=== PATIENT | male | born 1965 | race Caucasian/White ===

== ENCOUNTER → 2016-07-31 | Outpatient (CLI) | payer BC ==
[~2016-07-31] VITALS: Ht 175.3 cm; Wt 81.2 kg
[~2016-07-31] MED LIST: ACHD5005 PO; CATHETER FLUSH 10 ML SYR IV PRN; CYCL10TA9 PO; HYDR-3816 PO; IBP800T PO; IBUP-1780 PO; NAPR500T PO; PRD20T PO; TRAM50TA2 PO
== END ==
LOC: CARD 11:20
PROVIDERS: ATTEND Internal Medicine Cardiovascular Disease
DX: I10 Essential (primary) hypertension (principal); E78.4 Other hyperlipidemia; R94.31 Abnormal electrocardiogram [ECG] [EKG]; Z72.0 Tobacco use

== ENCOUNTER → 2016-09-04 | Outpatient (CLI) | payer BC ==
[~2016-09-04] MED LIST changes: +REGADENOSON 0.4 MG/5 ML SYR (LEXISCAN) IV ONE
[2016-09-04 09:29] VITALS: BP 148/86
[2016-09-04 09:33] VITALS: BP 143/74
[2016-09-04 09:36] VITALS: BP 138/79
--- NOTE | 2016-09-05 09:52 | STRESS TEST ---
PROCEDURE PHYSICIAN: KRYSTINA JIMENEZ DATE OF PROCEDURE: 09/04/2016 RESTING AND POST REGADENOSON TECHNETIUM 99M TETROFOSMIN SPECT CT IMAGING: ORDERING PHYSICIAN: Dr. Jimenez. PRIMARY PHYSICIAN: Dr. Butcher. OTHER PHYSICIAN: Zabrina Warner APRN. Baseline images were carried out after injection of 10.24 mCi technetium 99m tetrofosmin. This was followed by 0.4 mg of regadenoson and 29.9 mCi of technetium 99m tetrofosmin for stress imaging. The electrocardiogram showed sinus rhythm at baseline and did not change significantly with the regadenoson infusion. Review of images at rest and following stress, does not indicate any significant perfusion defects consistent with ischemia or infarction. Gated images show normal global left ventricular systolic function with normal regional wall motion. Left ventricular ejection fraction is calculated to be 56%. Left ventricular end diastolic volume is 106 mL. TID is absent (0.94). The electrocardiogram remained unchanged during this study and the patient did not report any significant symptoms and tolerated the procedure well. CONCLUSIONS: 1. No evidence of any significant myocardial ischemia or infarction on this study. 2. Normal regional wall motion. 3. Normal global left ventricular systolic function with a calculated ejection fraction of 56%. Job ID: [id number] Dictated Date: 09/04/2016 16:04:19 Employment Evaluator/Case Manager Date: 09/05/2016 09:49:13 / [place]
== END ==
LOC: CARD 07:34
PROVIDERS: ATTEND Internal Medicine Cardiovascular Disease
DX: I10 Essential (primary) hypertension (principal); E78.4 Other hyperlipidemia; R94.31 Abnormal electrocardiogram [ECG] [EKG]; Z72.0 Tobacco use
CPT/HCPCS: 78452; 93017

== ENCOUNTER 2016-11-13 09:47 | Outpatient (CLI) | payer BC ==
[~2016-11-13] VITALS: Ht 175.3 cm; Wt 83.5 kg
[~2016-11-13 09:47] MED LIST changes: -CATHETER FLUSH 10 ML SYR IV PRN; -HYDR-3816 PO; -REGADENOSON 0.4 MG/5 ML SYR (LEXISCAN) IV ONE
[2016-11-13] MEDS ORDERED: HYDR-3816 PO (10:15)
[2016-11-13 10:48] LABS: BASOPHILS % (AUTO) 0 % (0-10); EOSINOPHILS # (AUTO) 0.2 10^3/uL (0.0-0.3); EOSINOPHILS % (AUTO) 4 % (0-10); LYMPHOCYTES % (AUTO) 20 % (12-44); MEAN CORPUSCULAR HEMOGLOBIN 29 PG (25-34); MEAN CORPUSCULAR HGB CONC 34 G/DL (32-36); MEAN CORPUSCULAR VOLUME 86 FL (80-99); MEAN PLATELET VOLUME 10.5 FL (7.4-10.4); MONOCYTES # (AUTO) 0.5 X 10^3 (0.0-1.0); MONOCYTES % (AUTO) 10 % (0-12); NEUTROPHILS # (AUTO) 3.2 X 10^3 (1.8-7.8); NEUTROPHILS % (AUTO) 66 % (42-75); PLATELET COUNT 162 10^3/uL (130-400); RED BLOOD COUNT 4.91 10^6/uL (4.35-5.85); WHITE BLOOD COUNT 4.8 10^3/uL (4.3-11.0)
[2016-11-13 10:49] LABS: BILIRUBIN,URINE NEGATIVE (NEGATIVE); KETONES,URINE NEGATIVE (NEGATIVE); LEUKOCYTE ESTERASE ,URINE 1+ (NEGATIVE); NITRITE,URINE NEGATIVE (NEGATIVE); PH,URINE 6 (5-9); PROTEIN,URINE NEGATIVE (NEGATIVE); UROBILINOGEN,URINE NORMAL (NORMAL)
[2016-11-13 10:59] LABS: PROTHROMBIN TIME PATIENT 12.6 SEC (12.2-14.7)
[2016-11-13 11:02] VITALS: BP 151/91
[2016-11-13 11:03] LABS: SQUAMOUS EPITHELIAL CELL,UR RARE /HPF; WBC,URINE RARE /HPF
--- NOTE | 2016-11-13 11:03 | Diagnostic Imaging Report ---
INDICATION: Preoperative evaluation prior to knee surgery. PA and lateral views of the chest are obtained. No previous studies available at this time for comparison. Overall heart size and pulmonary vascularity are within normal limits. There is an approximately 1 cm nodular density projected over the lower left chest seen best on the frontal view. Nodules at this location may be due to nipple shadow. Note is made of mild lower thoracic spondylosis. IMPRESSION: Nodular density project over the lower left chest could represent a nipple shadow, although confirmation with nipple markers would be useful to exclude pulmonary lesion. Otherwise, no acute abnormalities identified. Dictated by: Dictated on workstation # [id number]
[2016-11-13 11:12] LABS: ALANINE AMINOTRANSFERASE 21 U/L (0-55); ANION GAP 8 MMOL/L (5-14); ASPARTATE AMINO TRANSFERASE 15 U/L (5-34); BILIRUBIN,TOTAL 0.4 MG/DL (0.1-1.0); BLOOD UREA NITROGEN 17 MG/DL (7-18); BUN/CREATININE RATIO 20; CALCIUM 8.8 MG/DL (8.5-10.1); CARBON DIOXIDE 25 MMOL/L (21-32); CHLORIDE 106 MMOL/L (98-107); CREATININE SERUM 0.87 MG/DL (0.60-1.30); GFR ESTIMATED > 60; GLUCOSE 99 MG/DL (70-105); SODIUM 139 MMOL/L (135-145); TOTAL PROTEIN 6.4 G/DL (6.4-8.2)
[2016-11-13 11:43] LABS: ERYTHROCYTE SEDIMENTATION RATE 4 MM/HR (0-15)
== END 2016-11-13 10:40 | disposition home or self-care (01) ==
LOC: PREOP 09:47
PROVIDERS: ATTEND Orthopaedic Surgery
DX: Z01.818 Encounter for other preprocedural examination (principal); Z01.812 Encounter for preprocedural laboratory examination; M17.12 Unilateral primary osteoarthritis, left knee; R53.83 Other fatigue
CPT/HCPCS: 36415; 71020; 80053; 81000; 85025; 85610; 85652; 86850; 86900; 86901; 87081

== ENCOUNTER 2016-11-21 06:00 | Inpatient (IN) | payer BC ==
--- NOTE | 2016-11-13 12:00 | HISTORY AND PHYSICAL ---
DATE OF SERVICE: 11/21/2016 REASON FOR INPATIENT ADMISSION: Left total knee arthroplasty. HISTORY OF PRESENT ILLNESS: The patient is a 51-year-old gentleman with longstanding left knee pain. He has undergone treatment with arthroscopies, injections, anti-inflammatories and rest, but has had progressive symptoms. Radiographs reveal complete loss of medial and patellofemoral joint spaces and arthroscopy revealed grade IV chondral loss throughout the medial and patellofemoral compartments. Due to failure to improve with conservative measures and functional impairment, the patient has elected to proceed with surgical intervention. REVIEW OF SYSTEMS: No chest pain, no shortness of breath, no dysuria. PAST MEDICAL HISTORY: Hypertension. PAST SURGICAL HISTORY: Knee arthroscopy and appendectomy. FAMILY HISTORY: Heart disease. PRIMARY CARE PROVIDER: [facility]. MEDICATIONS: Tramadol. ALLERGIES: No known drug allergies. SOCIAL HISTORY: The patient is an everyday smoker. Denies alcohol use. PHYSICAL EXAMINATION: GENERAL: The patient is well-developed, well-nourished, in no acute distress. HEENT: Normocephalic, atraumatic. Pupils are equal, round and reactive to light. Oropharynx is clear. NECK: Supple. No lymphadenopathy. LUNGS: Clear to auscultation bilaterally. HEART: Regular rate and rhythm. ABDOMEN: Soft, nontender, nondistended. EXTREMITIES: Left knee demonstrates varus alignment. He has a slight effusion. There is no erythema or warmth. Range of motion 0/2/130. There is no varus to valgus laxity. Negative anterior and posterior drawer. IMPRESSION: Severe left knee osteoarthritis, unresponsive to conservative measures. PLAN: Left total knee arthroplasty. The risks, benefits, options, ramifications and recovery have been discussed at length with the patient. He understands and wishes to proceed. Job ID: [id number] DocumentID: [id number] Dictated Date: 11/13/2016 11:01:32 Vehicle Calibration Engineer Date: 11/13/2016 12:00:16 Dictated By: DEREK SIFUENTES MD
[~2016-11-21] VITALS: Ht 175.3 cm; Wt 83.5 kg
[~2016-11-21 06:00] MED LIST changes: +HYDR-3816 PO
[2016-11-21] MEDS ORDERED: FAMOTIDINE 20MG/2ML IV (PEPCID) IV ONE (06:15)
[2016-11-21] MEDS ORDERED: fentaNYL INJECTION 100 MCG/2 ML AMP IV ONE (06:15)
[2016-11-21] MEDS ORDERED: NS (IVPB) 50 ML ONE (06:31)
[2016-11-21] MEDS ORDERED: CEFUROXIME 1.5 GM (ZINACEF) VIAL ONE (06:31)
[2016-11-21] MEDS: LACTATED RINGERS 1,000 ML IV PRN ×2 (06:41→08:05)
[2016-11-21] MEDS ORDERED: fentaNYL INJECTION 250 MCG/5 ML AMP ONE (06:43)
[2016-11-21] MEDS ORDERED: DEXAMETHASONE PF 10 MG/ML (DECADRON) VIAL ONE (06:43)
[2016-11-21] MEDS ORDERED: LACTATED RINGERS 1,000 ML IV ONE ×2 (06:43→08:46)
[2016-11-21] MEDS ORDERED: ONDANSETRON 4 MG/2 ML (SDV) Z0FRAN ONE (06:43)
[2016-11-21] MEDS ORDERED: LIDOCAINE PF 2% 10 ML (XYLOCAINE) AMP ONE (06:43)
[2016-11-21] MEDS ORDERED: proPOfol 200 MG/20 ML (DIPRIVAN) VIAL IV ONE (06:43)
[2016-11-21] MEDS ORDERED: MIDAZOLAM 2 MG/2 ML (VERSED) VIAL ONE (06:44)
[2016-11-21 06:49] VITALS: BP 142/98
[2016-11-21] MEDS ORDERED: CEFUROXIME 1.5 GM/NS 50 ML IVPB IV ONE ×2 (07:00)
--- NOTE | 2016-11-21 07:17 | Progress Note-Pre Operative ---
Pre-Operative Progress Note H&P Reviewed The H&P was reviewed, patient examined and no changes noted. Date H&P Reviewed: November 21, 2016 Time H&P Reviewed: 07:11 Pre-Operative Diagnosis: left knee primary osteoarthritis DEREK SIFUENTES MD November 21, 2016 07:17
--- NOTE | 2016-11-21 07:18 | Progress Note-Post Operative ---
Post-Operative Progess Note Surgeon (s)/Septic Technician (s) Surgeon DEREK SIFUENTES MD Septic Technician: Pedro Garcia Pre-Operative Diagnosis left knee primary osteoarthritis Post-Operative Diagnosis left knee primary osteoarthritis Procedure & Operative Findings Date of Procedure 11/21/16 Procedure Preformed/Findings left total knee arthroplasty Anesthesia Type GETA Estimated Blood Loss Estimated blood loss (mL): minimal Specimens/Packing Specimens Removed none Packing: none DEREK SIFUENTES MD November 21, 2016 07:18
[2016-11-21] MEDS ORDERED: ACETAMINOPHEN 325 MG TABLET/CAPLET (TYLENOL) PO PRN (07:30)
[2016-11-21] MEDS ORDERED: diphenhydrAMINE 50 MG/ML INJ (BENADRYL) IVP PRN (07:30)
[2016-11-21] MEDS ORDERED: INTRA-ARTICULAR INJ ONE ×5 (07:30)
[2016-11-21] MEDS ORDERED: ONDANSETRON 4 MG/2 ML (SDV) Z0FRAN IVP PRN ×2 (07:30→09:00)
[2016-11-21] MEDS ORDERED: morphine INJ 10 MG/ML 1ML (SYR OR VIAL) ONE (08:35)
[2016-11-21] MEDS ORDERED: ROCURONIUM 50 MG/5 ML (ZEMURON) VIAL IV ONE (08:46)
[2016-11-21] MEDS ORDERED: SEVOFLURANE (ULTANE) 15 ML INHAL SOLN ONE (08:47)
[2016-11-21] MEDS ORDERED: morphine INJ 10 MG/ML 1ML (SYR OR VIAL) IVP PRN (09:00)
[2016-11-21] MEDS ORDERED: MEPERIDINE (DEMEROL) INJ 50 MG/ML ONE (09:09)
[2016-11-21] MEDS: MEPERIDINE (DEMEROL) INJ 50 MG/ML IVP PRN ×2 (09:10→09:23)
[2016-11-21] MEDS ORDERED: HYDROmorphone (DILAUDID) 2 MG/ML VIAL ONE (09:22)
[2016-11-21] MEDS: HYDROmorphone (DILAUDID) 2 MG/ML VIAL IVP PRN ×4 (09:25→09:55)
--- NOTE | 2016-11-21 09:41 | Progress Note-Standard ---
Standard Progress Note Progress Notes/Assess & Plan Progress/Assessment & Plan Post op check denies paresthesias radiographs--HW well positioned. No fxs LLE--2 plus DP pulse with brisk cap refill. Intact df and PF of toes and ankle s/p LTKA mobilize as able DEREK SIFUENTES MD November 21, 2016 09:41
[2016-11-21] MEDS ORDERED: OXYC-197 PO (09:44)
--- NOTE | 2016-11-21 09:46 | Diagnostic Imaging Report ---
INDICATION: Status post left knee replacement. COMPARISON: None. FINDINGS: Two views of the left knee were obtained. Expected postoperative changes are seen from left knee total arthroplasty. Femoral and tibial components appear well-seated. There is no evidence of periprosthetic fracture. There is a small amount of subcutaneous emphysema in the soft tissues over the knee. Skin scout are seen centrally over the anterior aspect of the knee. No unexpected radiopaque foreign bodies are identified. IMPRESSION: Expected postsurgical changes from left knee total arthroplasty, as described above. No unexpected radiopaque foreign bodies. Dictated by: Dictated on workstation # [id number]
[2016-11-21 11:00] VITALS: BP 135/85
[2016-11-21] MEDS: oxyCODONE/APAP 5/325MG (PERCOCET 5) TABLET PO PRN ×3 (11:21→20:41)
[2016-11-21] MEDS: SENNA W/DOCUSATE (SENOKOT S) TABLET PO SCH ×2 (11:21→20:40)
[2016-11-21] MEDS: NS IV 1000 ML 1,000 ML IV SCH ×2 (11:22→23:31)
[2016-11-21] MEDS: morphine PCA 30 MG/30 ML VIAL IV PRN (11:43)
[2016-11-21 12:00] VITALS: BP 154/89
--- NOTE | 2016-11-21 15:13 | Physical Therapy Evaluation ---
PT Evaluation-General Medical Diagnosis Admission Date November 21, 2016 at 06:00 Medical Diagnosis: left TKA Onset Date: November 21, 2016 Therapy Diagnosis Therapy Diagnosis: impaired mobility, endurance, ROM, strength Height/Weight Height (Feet): 5 Height (Inches): 9.00 Weight (Pounds): 184 Weight (Ounces): 0.0 Precautions Precautions/Isolations: Standard Precautions Weight Bear Status Weight Bearing Restriction: Weight Bearing/Tolerated Location Restriction: L LE Referral Physician: Pedro Garcia Reason for Referral: Evaluation/Treatment Medical History Pertinent Medical History: HTN Additional Medical History surg (knee arthroplasty, appendectomy) Current History elective surgery Reviewed History: Yes Social History Home: Single Level Current Living Status: Spouse Entry Into Home: Stairs Without Railing PT Steps Into Home: 1 Prior/Core FIM Prior Level of Function Functional [place] Measure 0=Not Assessed/NA 4=Minimal Assistance 1=Total Assistance 5=Supervision or Setup 2=Maximal Assistance 6=Modified [place] 3=Moderate Assistance 7=Complete [place] Bed Mobility: 7 Transfers (B,C,W/C) (FIM): 7 Gait: 7 patient states he had a significant limp PT Evaluation-Current Subjective Patient in bed pre tx, agrees to PT, nerve block is still working and he cannot dorsiflex but has some sensation, has pain of 7/10 Pt/Family Goals "to get back to work as soon as he can" Objective Patient Orientation: Normal For Age Attachments: IV ROM/Strength ROM Lower Extremities left knee extension +10 degrees, flexion 75 degrees Strenght Lower Extremities NT due to recent surgery Integumentary/Posture Bowel Incontinence: No Bladder Incontinence: No Sensory Vision: Functional Hearing: Functional Sensation Right Lower Extremit: Intact Sensation Left Lower Extremity: Impaired Sensation Lower Extremities Patient has intact light touch sensation in his left leg but it is dull. Transfers Functional [place] Measure 0=Not Assessed/NA 4=Minimal Assistance 1=Total Assistance 5=Supervision or Setup 2=Maximal Assistance 6=Modified [place] 3=Moderate Assistance 7=Complete [place] Transfers (B, C, W/C) (FIM): 4 Scootin Rollin Supine to/from Sit: 5 Sit to/from Stand: 4 Patient is somewhat impulsive and needs cues for safety and positioning. Gait Mode of Locomotion: Walk Anticipated Mode of Locomotion: Walk Gait (FIM): 2 Distance: 100' Gait Level of Assist: 4 Gait Persons Needed: 1 Gait Assistive Device: FWW Comments/Gait Description Slow, antalgic, foot drop on left side due to still working nerve block, flexed left knee during ambulation Balance Sitting Static: Normal Sitting Dynamic: Normal Standing Static: Good Standing Dynamic: Good Treatment Left side total knee protocol x10 (AP, QS, HS, SAQ, SLR), applied CPM to left knee at 56/-2, has on SCD's. Patient left in bed with nurse call, phone, tray, all needs met. Assessment/Needs Patient has impaired mobility, strength, endurance, ROM post left TKA. Rehab Potential: Good PT Home Specialist Goals Home Specialist Goals PT Custodial Goals Time Frame: November 28, 2016 Transfers (B,C,W/C) (FIM): 5 Gait (FIM): 5 Distance: 150' Gait Level of Assist: 5 Gait Assistive Device: FWW Stairs (FIM): 1 # of Steps: 1 Stairs Level Of Assist: 4 (cga) PT Plan Problem List Problem List: Activity Tolerance, Functional Strength, Safety, Balance, Gait, Transfer, Bed Mobility, ROM Treatment/Plan Treatment Plan: Continue Plan of Care Treatment Plan: Bed Mobility, Education, Functional Activity Solo, Functional Strength, Gait, Safety, Therapeutic Exercise, Transfers Treatment Duration: November 28, 2016 # of days/week 5-6 Visits Per Week: 10-11 Minutes/Day (M-F): 15-30 Minutes/Day (Sat/[place]): 15-30 Pt/Family Agrees w/Plan: Yes Safety Risks/Education Patient Education: Gait Training, Transfer Techniques, Correct Positioning, Safety Issues Teaching Recipient: Patient Teaching Methods: Demonstration, Discussion Response to Teaching: Reinforcement Needed Discharge Recommendations Plan Patient will perform bed mobility and transfer training, balance and endurance training, functional strengthening, stair training, gait training, and education , to improve functional mobility and independence at home. Therapy D/C Recommendations: Home w/ Family Support Time/GCodes Time In: 1435 Time Out: 1505 Total Billed Treatment Time: 30 Total Billed Treatment 1 visit ARIE 15' GT 15' JOSE ELIAS MCGEE PT November 21, 2016 15:13
[2016-11-21] MEDS: CEFUROXIME INJECTION 750 MG in NS (IVPB) 50 ML IV SCH ×2 (15:52→23:31)
[2016-11-21 16:00] VITALS: BP 133/78
[2016-11-21 20:00] VITALS: BP 126/60
[2016-11-22] VITALS: BP 111/61
--- NOTE | 2016-11-22 01:00 | OPERATIVE REPORT ---
DATE OF SERVICE: 11/21/2016 PREOPERATIVE DIAGNOSIS: Left knee primary osteoarthritis. POSTOPERATIVE DIAGNOSIS: Left knee primary osteoarthritis. PROCEDURE PERFORMED: Left total knee arthroplasty. SURGEON: Dr. Mathew Sifuentes. VICE PRESIDENT OF RECRUITING: KATE Koch, who assisted throughout the procedure and closed the incision. ANESTHESIA: General endotracheal by Pedro Barth CRNA. TOURNIQUET TIME: Approximately 63 minutes at 300 mmHg. ESTIMATED BLOOD LOSS: Minimal. DRAINS: None. COMPLICATIONS: None. MATERIALS: MicroPort, cemented size 5 femur, cemented size 6 tibia with a 10-mm insert and cemented size 35 patellar button. POSTOPERATIVE PLANS: The patient transported to the recovery room, awake and in stable condition. STATEMENT OF MEDICAL NECESSITY: The patient is a 51-year-old gentleman with longstanding left knee osteoarthritis. He has undergone treatment with multiple injections as well as arthroscopy, but he has had progressive loss of function and increasing pain. Radiographs show complete loss of his medial and patellofemoral joint spaces. Due to functional impairment and failure to improve with conservative measures, the patient elected to proceed with surgical intervention. DESCRIPTION OF PROCEDURE: After risks and benefits of the procedure were discussed and questions were answered and informed consent was signed and placed on the chart, the operative site was confirmed in the preoperative holding area and initialed by the surgeon. The patient was then transported to the operating room and after adequate levels of general endotracheal anesthetic were obtained, a time-out was called confirming the operative site. The left lower extremity was then prepped and draped in the usual sterile fashion with the leg elevated and knee flexed. Tourniquet was inflated 300 mmHg. A standard anterior portal was utilized. Hemostasis was obtained with cautery. A medial parapatellar arthrotomy was performed leaving 1 cm cuff on the patella for later reattachment. A portion of the fat pad was resected. The ACL was resected. An intramedullary guide was passed into the femur and a distal cutting block was placed. A distal cut was made and the femur sized to size 5. A cutting block was placed parallel to the epicondylar access and cuts were made from posterior to anterior. A subperiosteal release was then carefully performed on the posterior distal femur being careful to stay on the bony surface. The intramedullary guide was then passed into the tibia. A cutting block was placed. A drop deniz transected the intramedullary access and a cut was made. The base plate was placed and again the drop deniz transected the intermalleolar access, and this was pinned into position and then prepared with a drill and keel punch. A femoral trial was placed and a trochlear cut was made. A 10-mm insert was placed and the patella was then prepared using the free-end technique by resecting 10 mm off the undersurface. A peg guide was placed and peg holes were drilled. A 35-mm trial was placed. The knee was taken through range of motion. Full extension was easily obtained, 120 degrees of flexion with gravity was easily obtained. The patella tracked well. There was no anterior/posterior or medial/lateral laxity in flexion or extension. The trials were removed. The joint was irrigated with pulse lavage as were the bone ends. The para-articular block was placed in posterior capsule, medial and lateral retinacular, extensor mechanism, subcutaneous tissues. The tibia was irrigated and dried and tibial base plate was cemented into position. Excessive cement was removed. The superior surface was irrigated and dried and the polyethylene insert was placed. The distal femur was irrigated and dried. The femoral prosthesis was cemented into position. Excessive cement was removed. The knee was brought into full extension until the cement had cured. The undersurface of the patella was irrigated and dried, and the patellar button was cemented into position, and excessive cement was removed. Once the cement had cured, the knee was taken through range of motion. Full extension was easily obtained, 120 degrees of flexion with gravity was easily obtained. There was no anterior/posterior or medial/lateral laxity in flexion or extension and the patella tracked well. The joint was irrigated further post lavage. The arthrotomy was closed with #2 Tevde[place] in [id number] interrupted fashion. There was no [facility] noted at the repair site. Subcutaneous tissues were irrigated using a total 6 L throughout the procedure. An 0 Vicryl was used for deep subcutaneous tissue. A 2-0 Vicryl was used to reapproximate the subcutaneous tissue. [place] were used on the skin. A soft dressing was applied. The tourniquet was deflated, and the patient was transported to the recovery room awake and in stable condition. Job ID: [id number] DocumentID: [id number] Dictated Date: 11/21/2016 09:05:34 Event Executive Date: 11/22/2016 00:37:34 Dictated By: MATHEW SIFUENTES MD
[2016-11-22] MEDS: oxyCODONE/APAP 5/325MG (PERCOCET 5) TABLET PO PRN ×8 (02:02→20:00)
[2016-11-22] MEDS: morphine PCA 30 MG/30 ML VIAL IV PRN ×2 (03:02→22:00)
[2016-11-22 04:00] VITALS: BP 120/69
[2016-11-22] MEDS: MULTIVIT W/MINERALS TAB (THERAGRAN M) PO SCH (06:07)
--- NOTE | 2016-11-22 07:40 | Progress Note-Standard ---
Standard Progress Note Progress Notes/Assess & Plan Progress/Assessment & Plan Post op check denies paresthesias radiographs--HW well positioned. No fxs LLE--2 plus DP pulse with brisk cap refill. Intact df and PF of toes and ankle s/p LTKA mobilize as able Final Diagnosis No complaints Vital Signs Date Time Temp Pulse Resp B/P (MAP) Pulse Ox O2 Delivery O2 Flow Rate FiO2 11/22/16 06:00 15 11/22/16 04:45 98.6 11/22/16 04:00 100.2 77 15 120/69 96 11/22/16 03:02 12 11/22/16 02:33 97 11/22/16 00:00 98.4 86 12 111/61 96 11/21/16 21:48 96 11/21/16 20:00 98.7 75 18 126/60 100 11/21/16 18:27 97 11/21/16 16:22 97.3 11/21/16 16:00 97.3 77 18 133/78 96 11/21/16 15:52 97.3 11/21/16 15:29 97 11/21/16 12:00 97.3 78 16 154/89 98 11/21/16 11:51 98.8 11/21/16 11:00 98.8 74 20 135/85 95 11/21/16 09:55 97.5 11/21/16 09:45 97.5 11/21/16 09:40 97.5 11/21/16 09:40 97.5 11/21/16 09:35 97.5 11/21/16 09:25 97.5 11/21/16 09:23 97.5 11/21/16 09:10 97.5 11/21/16 08:30 98.5 I & O 11/22/16 07:00 Intake Total 3920 ml Output Total 2020 ml Balance 1900 ml Laboratory Tests Test 11/22/16 04:30 Range/Units Hemoglobin 10.9 L 13.3-17.7 G/DL Hematocrit 32 L 40-54 % LLE--no calf tenderness. Neg Tristian's. NVI distally. Dressing intact s/p LTKA doing well PT/OT DEREK SIFUENTES MD November 22, 2016 07:40
[2016-11-22 08:00] VITALS: BP 132/69
--- NOTE | 2016-11-22 09:08 | Occupational Therapy Eval ---
OT Evaluation-General/PLF Medical Diagnosis Admission Date November 21, 2016 at 06:00 Medical Diagnosis: left TKA Onset Date: November 21, 2016 Therapy Diagnosis Therapy Diagnosis: Weakness, Decreased ADL skills Height/Weight Height (Feet): 5 Height (Inches): 9.00 Weight (Pounds): 184 Weight (Ounces): 0.0 Precautions Precautions/Isolations: Standard Precautions Safety Interventions: None Weight Bear Status Weight Bearing Restriction: Weight Bearing/Tolerated Location Restriction: L LE Referral Physician: Pedro Garcia Referral Reason: Activity Tolerance, Self Care, Evaluation/Treatment, Strengthening/ROM Medical History Pertinent Medical History: HTN Additional Medical History knee arthroscopy and appendectomy Current History This is an elective knee surgery. Reviewed History: Yes Social History Home: Single Level Current Living Status: Spouse Entry Into Home: Stairs Without Railing Steps Into Home: 1 ADL-Prior Level of Function ADL PLOF Comments Pt. was independent with daily tasks. Drives and works. DME/Equipment Comments Pt. thinks spouse might have a walker from previous surgeries. He will check. Does not think he needs any other equipment, such as stool riser and shower chair. Occupation: Works at [employer] Self: Yes OT Current Status Subjective Pt. reports 8/10 pain in left knee. Pt. on pain medication, CO2 monitor, and morphine drip. Appearance Pt. is asleep but wakes up. Agreeable to work with OT. Mental Status/Objective Patient Orientation: Person, Place, Time, Situation Attachments: IV, Oxygen, Polar Pack Current Upper Extremity ROM WFL Upper Extremity Coordination intact Upper Extremity Sensation intact Upper Extremity Strength intact ADL-Treatment Functional [place] Measure 0=Not Assessed/NA 4=Minimal Assistance 1=Total Assistance 5=Supervision or Setup 2=Maximal Assistance 6=Modified [place] 3=Moderate Assistance 7=Complete IndependenceIRFPAI Quality Coding Scale 6 Independent with activity with or without an assistive device 5 Patient requires set up or clean up by helper. Patient completes activity by themselves 4 Supervision or touching assist (CGA). [place] provide cues , steadying assist 3 The helper provides less than half the effort to complete the activity 2 The helper provides more than half the effort to complete the activity 1 Dependent. The helper does all the effort to complete an activity 7 Patient refused to complete or attempt activity 9 The patient did not perform the activity before the current illness or injury 88 Not attempted due to Medical conditions or safety concerns Eating (FIM): 7 Bathing (FIM): 5 (Pt. spongebathes somewhat on side of bed. However, has difficulty only due to the monitors and tubing. Pt. states that he will have his spouse help him later if needed.) Lower Body Dressing (FIM): 5 (Pt. is able to doff/don socks. Has boxer briefs on and states that he put them on himself.) Toileting (FIM): 6 (Pt. states that he was able to have a bowel movement already, and was able to clean himself up.) Transfers (B, C, W/C) (FIM): 5 (Pt. is able to transfer supine-sit, and then sit-stand with SBA. Able to get feet back into bed as well.) Multiple tubes and chords makes ADLs more difficult, but overall, pt. is able to complete them. Pt. is educated on adaptive equipment, but states that he is not interested in using it, as his spouse can assist him if needed at home. Pt. is educated about positioning in bed, and pain management. Verbalizes understanding. All needs met this date. Education OT Patient Education: Correct positioning, Modified ADL techniques, Progress toward Goal/Update tx plan, Purpose of tx/functional activities, Reviewed precautions, Rehab process, Transfer techniques, Use of adapted equipment Teaching Recipient: Patient Teaching Methods: Demonstration, Discussion Response to Teaching: Verbalize Understanding, Return Demonstration OT Short Term Goals Short Term Goals 1=Demonstrate adherence to instructed precautions during ADL tasks. 2=Patient will verbalize/demonstrate understanding of assistive devices/ modifications for ADL. 3=Patient will improve strength/tolerance for activity to enable patient to perform ADL's. OT Usp Goals Traveling Freight Agent Goals Time Frame: November 22, 2016 Bathing(FIM): 5 Lower Body Dressing(FIM): 5 Toileting(FIM): 6 Transfers (B,C,W/C) (FIM): 5 Additional Goals: 1-Demonstrate ADL Tasks, 2-Verbalize Understanding 1=Demonstrate adherence to instructed precautions during ADL tasks. 2=Patient will verbalize/demonstrate understanding of assistive devices/ modifications for ADL. 3=Patient will improve strength/tolerance for activity to enable patient to perform ADL's. All goals met this date. OT Education/Plan Problem List/Assessment Assessment: No Skilled OT Needs ID'd Discharge Recommendations Plan/Recommendations: Discharge/Goals Met Therapy D/C Recommendations: Home w/ Family Support Patient/Family Goals To discharge tomorrow. Treatment Plan/Plan of Care Treatment,Training & Education: Yes Patient would benefit from OT for education, treatment and training to promote independence in ADL's, mobility, safety and/or upper extremity function for ADL' s. Plan of Care: ADL Retraining Treatment Duration: November 22, 2016 Visits Per Week: 1 visit Agreement: Yes Rehab Potential: Good Time/GCodes Start Time: 08:30 Stop Time: 09:00 Total Time Billed (hr/min): 30 Billed Treatment Time 1, EVL x 15minutes, ADL x 15minutes MALCOLM ISAAC OT November 22, 2016 09:08
[2016-11-22] MEDS: SENNA W/DOCUSATE (SENOKOT S) TABLET PO SCH ×2 (09:14→20:28)
[2016-11-22] MEDS: ENOXAPARIN 30 MG/0.3 ML (LOVENOX) SYR SC SCH ×2 (09:15→20:28)
[2016-11-22] MEDS: ASPIRIN E.C. 81 MG (ECOTRIN) TAB PO SCH (09:15)
--- NOTE | 2016-11-22 09:26 | Physical Therapy Daily Note ---
PT Daily Note-Current Subjective Patient complete with OT and agrees to PT. Pain Numeric Pain Scale: 5-Moderate Pain Location: Left Location Body Site: Knee Pain Description: Acute Mental Status Patient Orientation: Normal For Age Attachments: Polar Pack, IV Transfers Functional [place] Measure 0=Not Assessed/NA 4=Minimal Assistance 1=Total Assistance 5=Supervision or Setup 2=Maximal Assistance 6=Modified [place] 3=Moderate Assistance 7=Complete IndependenceIRFPAI Quality Coding Scale 6 Independent with activity with or without an assistive device 5 Patient requires set up or clean up by helper. Patient completes activity by themselves 4 Supervision or touching assist (CGA). [place] provide cues , steadying assist 3 The helper provides less than half the effort to complete the activity 2 The helper provides more than half the effort to complete the activity 1 Dependent. The helper does all the effort to complete an activity 7 Patient refused to complete or attempt activity 9 The patient did not perform the activity before the current illness or injury 88 Not attempted due to Medical conditions or safety concerns Transfers (B, C, W/C) (FIM): 6 Scootin Rollin Supine to/from Sit: 6 Sit to/from Stand: 6 Weight Bearing Weight Bearing Restriction: Weight Bearing/Tolerated Location Restriction: L LE Gait Training Gait (FIM): 6 Distance (FIM): 3=150 ft Distance: 200' Gait Level of Assist: 6 Gait Assistive Device: FWW antalgic, flexed left knee posture Exercises Supine Ex: Ankle pumps, Quad Set, Heel Slides Supine Reps: 10 Seated Therapy Exercises: Long arc quads Seated Reps: 15 Treatments CPM with polar pack, 0-70 degrees Assessment Patient tolerated treatment well and is highly motivated with progress. PT to increase activity as tolerated by patient. PT Halfway Goals Halfway Goals PT Halfway Goals Time Frame: November 28, 2016 Transfers (B,C,W/C) (FIM): 5 Gait (FIM): 5 Distance: 150' Gait Level of Assist: 5 Gait Assistive Device: FWW Stairs (FIM): 1 # of Steps: 1 Stairs Level Of Assist: 4 (cga) PT Plan Treatment/Plan Treatment Plan: Continue Plan of Care Treatment Plan: Bed Mobility, Education, Functional Activity Solo, Functional Strength, Gait, Safety, Therapeutic Exercise, Transfers Treatment Duration: November 28, 2016 Visits Per Week: 10-11 Minutes/Day (M-F): 15-30 Minutes/Day (Sat/Gamez): 15-30 Time/GCodes Time In: 855 Time Out: 918 Total Billed Treatment Time: 23 Total Billed Treatment 1 visit GT 15 min EX 8 min WING AYOUB PT November 22, 2016 09:26
--- NOTE | 2016-11-22 10:31 | Anesthesia-General Post-Op ---
General Patient Condition Mental Status/LOC: Same as Preop Cardiovascular: Satisfactory Nausea/Vomiting: Absent Respiratory: Satisfactory Pain: Controlled Complications: Absent Post Op Complications Complications None Follow Up Care/Instructions Patient Instructions None needed. Anesthesia/Patient Condition Patient Condition Patient is doing well, no complaints, stable vital signs, no apparent adverse anesthesia problems. No complications reported per nursing. D/C home per [facility] Criteria: No XAVIER BRODERICK CRNA November 22, 2016 10:31
[2016-11-22] MEDS: NS IV 1000 ML 1,000 ML IV SCH ×2 (10:53→17:02)
--- NOTE | 2016-11-22 11:55 | Progress Note-Hospitalist ---
Progress Note Progress Notes/Assess & Plan Date Seen 11/22/16 Diagonsis/Assessment & Plan Attempted to see patient for consultation but he was off the floor downstairs smoking so will follow up later. RITA PEARSON DO November 22, 2016 11:55
[2016-11-22 12:00] VITALS: BP 152/73
--- NOTE | 2016-11-22 13:49 | Physical Therapy Daily Note ---
PT Daily Note-Current Subjective Patient has increase c/o left knee pain 10/10 with RN issuing medication. Pain Numeric Pain Scale: 10-Worst Possible Pain Location: Left Location Body Site: Knee Pain Description: Acute Mental Status Patient Orientation: Normal For Age Attachments: IV Transfers Functional [place] Measure 0=Not Assessed/NA 4=Minimal Assistance 1=Total Assistance 5=Supervision or Setup 2=Maximal Assistance 6=Modified [place] 3=Moderate Assistance 7=Complete IndependenceIRFPAI Quality Coding Scale 6 Independent with activity with or without an assistive device 5 Patient requires set up or clean up by helper. Patient completes activity by themselves 4 Supervision or touching assist (CGA). [place] provide cues , steadying assist 3 The helper provides less than half the effort to complete the activity 2 The helper provides more than half the effort to complete the activity 1 Dependent. The helper does all the effort to complete an activity 7 Patient refused to complete or attempt activity 9 The patient did not perform the activity before the current illness or injury 88 Not attempted due to Medical conditions or safety concerns Transfers (B, C, W/C) (FIM): 6 Scootin Rollin Supine to/from Sit: 6 Sit to/from Stand: 6 Weight Bearing Weight Bearing Restriction: Weight Bearing/Tolerated Location Restriction: L LE Gait Training Gait (FIM): 6 Distance (FIM): 3=150 ft Distance: 350' Gait Level of Assist: 6 Gait Assistive Device: FWW continues to have difficulty extended left knee with ambulation; patient prefers to perform TTWB left LE for comfort Exercises Supine Ex: Ankle pumps, Quad Set, Heel Slides, Straight leg raise Supine Reps: 15 Seated Therapy Exercises: Ankle pumps, Long arc quads Seated Reps: 15 Standing: Heel/toe raises Standing Reps: 15 Treatments polar pack in place with towel rolls placed on lateral aspect of left LE to prevent ER. Assessment Patient is progressing with treatment plan. Plan to increase activity as tolerated. PT Bias Machine Operator Goals Bias Machine Operator Goals PT Mcc Goals Time Frame: November 28, 2016 Transfers (B,C,W/C) (FIM): 5 Gait (FIM): 5 Distance: 150' Gait Level of Assist: 5 Gait Assistive Device: FWW Stairs (FIM): 1 # of Steps: 1 Stairs Level Of Assist: 4 (cga) PT Plan Treatment/Plan Treatment Plan: Continue Plan of Care Treatment Plan: Bed Mobility, Education, Functional Activity Solo, Functional Strength, Gait, Safety, Therapeutic Exercise, Transfers Treatment Duration: November 28, 2016 Visits Per Week: 10-11 Minutes/Day (M-F): 15-30 Minutes/Day (Sat/Gamez): 15-30 Time/GCodes Time In: 1305 Time Out: 1330 Total Billed Treatment Time: 25 Total Billed Treatment 1 visit GT 10 min EX 15 min WING AYOUB PT November 22, 2016 13:49
[2016-11-22 16:10] VITALS: BP 164/84
[2016-11-22] MEDS: morphine INJ 4 MG/ML 1 ML (VIAL/SYRINGE) IVP PRN ×2 (16:57→20:44)
[2016-11-22 19:33] VITALS: BP 167/87
[2016-11-22] MEDS ORDERED: morphine INJ 4 MG/ML 1 ML (VIAL/SYRINGE) IVP PRN (21:00)
[2016-11-22] MEDS ORDERED: ALPRAZolam 1 MG (XANAX) TAB PO SCH (21:00)
[2016-11-23] MEDS: oxyCODONE/APAP 5/325MG (PERCOCET 5) TABLET PO PRN ×8 (00:24→23:12)
[2016-11-23] MEDS: morphine INJ 4 MG/ML 1 ML (VIAL/SYRINGE) IVP PRN (01:11)
[2016-11-23 04:30] VITALS: BP 156/86
[2016-11-23] MEDS: NS IV 1000 ML 1,000 ML IV SCH (05:38)
[2016-11-23] MEDS: MULTIVIT W/MINERALS TAB (THERAGRAN M) PO SCH (05:38)
--- NOTE | 2016-11-23 06:54 | Progress Note-Standard ---
Standard Progress Note Progress Notes/Assess & Plan Progress/Assessment & Plan Post op check denies paresthesias radiographs--HW well positioned. No fxs LLE--2 plus DP pulse with brisk cap refill. Intact df and PF of toes and ankle s/p LTKA mobilize as able Final Diagnosis Pt had difficulty with pain last PM Vital Signs Date Time Temp Pulse Resp B/P (MAP) Pulse Ox O2 Delivery O2 Flow Rate FiO2 11/23/16 06:00 18 11/23/16 00:35 100.5 90 22 96 11/22/16 19:33 100.2 86 15 167/87 97 11/22/16 19:23 96 11/22/16 18:37 20 11/22/16 18:10 97.2 11/22/16 17:33 97.2 11/22/16 17:31 97.2 11/22/16 16:57 97.2 11/22/16 16:10 99.4 83 20 164/84 99 11/22/16 15:29 100 11/22/16 15:29 97.2 11/22/16 13:32 97.2 11/22/16 12:00 97.2 68 16 152/73 99 11/22/16 11:14 97.6 11/22/16 10:01 98 11/22/16 09:15 97.6 11/22/16 08:00 15 11/22/16 08:00 97.6 69 16 132/69 97 I & O 11/23/16 07:00 Intake Total 2990 ml Output Total 3025 ml Balance -35 ml Laboratory Tests Test 11/23/16 05:25 Range/Units Hemoglobin 11.3 L 13.3-17.7 G/DL Hematocrit 34 L 40-54 % LLE--incision clean and dry. No calf tenderness. Neg Tristian's. Active flexion to90 s/p LTKA pt on chronic narcotics so difficult pain management. Will change to Fentanyl continue PT/OT plan for DC tomorrow DEREK SIFUENTES MD November 23, 2016 06:54
[2016-11-23] MEDS: fentaNYL INJECTION 100 MCG/2 ML AMP IVP PRN ×8 (07:01→23:11)
[2016-11-23] MEDS: SENNA W/DOCUSATE (SENOKOT S) TABLET PO SCH ×2 (08:12→21:01)
[2016-11-23] MEDS: ASPIRIN E.C. 81 MG (ECOTRIN) TAB PO SCH (08:12)
[2016-11-23] MEDS: ENOXAPARIN 30 MG/0.3 ML (LOVENOX) SYR SC SCH ×2 (08:12→21:01)
[2016-11-23 08:48] VITALS: BP 158/95
--- NOTE | 2016-11-23 09:40 | Physical Therapy Daily Note ---
PT Daily Note-Current Subjective Patient is in bed and c/o 10/10 left knee pain with medication issued and no relief per patient report. Pain Numeric Pain Scale: 10-Worst Possible Pain Location: Left Location Body Site: Knee Pain Description: Acute Mental Status Patient Orientation: Normal For Age Attachments: Polar Pack Transfers Functional [place] Measure 0=Not Assessed/NA 4=Minimal Assistance 1=Total Assistance 5=Supervision or Setup 2=Maximal Assistance 6=Modified [place] 3=Moderate Assistance 7=Complete IndependenceIRFPAI Quality Coding Scale 6 Independent with activity with or without an assistive device 5 Patient requires set up or clean up by helper. Patient completes activity by themselves 4 Supervision or touching assist (CGA). [place] provide cues , steadying assist 3 The helper provides less than half the effort to complete the activity 2 The helper provides more than half the effort to complete the activity 1 Dependent. The helper does all the effort to complete an activity 7 Patient refused to complete or attempt activity 9 The patient did not perform the activity before the current illness or injury 88 Not attempted due to Medical conditions or safety concerns Transfers (B, C, W/C) (FIM): 6 Scootin Rollin Supine to/from Sit: 6 Sit to/from Stand: 6 Gait Training Gait (FIM): 6 Distance (FIM): 3=150 ft Distance: 200' x 2 Gait Level of Assist: 6 Gait Persons Needed: 1 Gait Assistive Device: FWW slow, antalgic, patient performs with TTWB left LE with noted 40 degrees knee flexion and will not correct or allow knee to extend due to pain Stair Training Stair Training: Handrails/: 2 handrails Stairs (FIM): 2 #of Steps: 4 Stairs: Pattern: Step to Level of Assist: 5 Exercises Supine Ex: Ankle pumps, Quad Set, Heel Slides, Straight leg raise Supine Reps: 10 Seated Therapy Exercises: Ankle pumps, Long arc quads Seated Reps: 10 Assessment Education with patient on importance of exercise and mobility to benefit from elective TKR. Patient voices understanding, however, has been observed decreasing CPM ROM after this PT set it at 0-80 degrees with polar pack in place. Patient is actively attaining 90 degrees left knee flexion at EOB. PT Shelter Goals Shelter Goals PT Senior Chemical Engineer Goals Time Frame: November 28, 2016 Transfers (B,C,W/C) (FIM): 5 Gait (FIM): 5 Distance: 150' Gait Level of Assist: 5 Gait Assistive Device: FWW Stairs (FIM): 1 # of Steps: 1 Stairs Level Of Assist: 4 (cga) PT Plan Treatment/Plan Treatment Plan: Continue Plan of Care Treatment Plan: Bed Mobility, Education, Functional Activity Solo, Functional Strength, Gait, Safety, Therapeutic Exercise, Transfers Treatment Duration: November 28, 2016 Visits Per Week: 10-11 Minutes/Day (M-F): 15-30 Minutes/Day (Sat/Gamez): 15-30 Safety Risks/Education Patient Education: Correct Positioning, Safety Issues Teaching Recipient: Patient Teaching Methods: Demonstration, Discussion Response to Teaching: Verbalize Understanding, Return Demonstration, Reinforcement Needed Discharge Recommendations Equpiment Recommendations-D/C: Front Wheeled Walker Time/GCodes Time In: 825 Time Out: 855 Total Billed Treatment Time: 30 Total Billed Treatment 1 visit EX 15 min GT 15 min WING AYOUB PT November 23, 2016 09:40
--- NOTE | 2016-11-23 10:13 | Consultation-Hospitalist ---
HPI History of Present Illness: HPI/Chief Complaint CC: Left knee replacement uncomplicated POD # 2 HPI: This is a 51-year-old white male clinic patient of [facility] whom I' m covering that is status post uneventful left knee replacement having a great deal of pain today. I was unable to seem yesterday because he was downstairs smoking. He at this current time was counseled with smoking cessation and I did order a 2 wheel walker front-wheeled to assist with ambulation once discharge but the plan is to go home tomorrow. He reports that bowels are moving and urination without difficulty and overall he feels fine except for the pain. Source: patient Exam Limitations: no limitations Date Seen 11/23/16 Attending Physician Mathew Lock MD PCP Theresa Butcher DO Referring Physician Date of Admission November 21, 2016 at 06:00 Home Medications & Allergies Home Medications Reviewed patient Home Medication Reconciliation Form Allergies Allergies Coded Allergies No Known Drug Allergies (Unverified10/07/10) Past Hjzrzji-Wxqykb-Jqwirh Hx Patient Social History Marrital Status: single Employed/Student: unemployed Alcohol Use: Denies Use Recreational Drug Use: No Type Used: Cigarettes Physical Abuse Screen: Yes (4O YEARS OLD) Sexual Abuse: No Recent Foreign Travel: No Contact w/other who traveled: No Recent Hopitalizations: No Recent Infectious Disease Expo: No Seasonal Allergies Seasonal Allergies: Yes Surgeries HX Surgeries: Yes (17 YEARS AGO, OPEN APPY) Respiratory Hx Respiratory Disorders: No Cardiovascular Hx Cardiovascular Disorders: No Neurological Hx Neurological Disorders: No Reproductive System Hx Reproductive Disorders: No Genitourinary Hx Genitourinary Disorders: No Gastrointestinal Hx Gastrointestinal Disorders: No Musculoskeletal Hx Musculoskeletal Disorders: Yes Musculoskeletal Disorders: Arthritis Endocrine Hx Endocrine Disorders: No HEENT HX ENT Disorders: Yes (prior head injury from a hammer that fell off a roof) Cancer Hx Cancer: No Psychosocial Hx Psychiatric Problems: No Behavioral Health Disorders: Anxiety Integumentary HX Skin/Integumentary Disorder: No Blood Transfusions Hx Blood Disorders: No Family Medical History Significant Family History: No Pertinent Family Hx Family Hx: FH: cancer 19 MOTHER Myocardial infarction 19 FATHER Review of Systems Constitutional: see HPI EENTM: no symptoms reported Respiratory: no symptoms reported Cardiovascular: no symptoms reported Gastrointestinal: no symptoms reported Musculoskeletal: joint pain (left knee) Psychiatric/Neurological: No Symptoms Reported All Other Systems Reviewed Negative Unless Noted: Yes Physical Exam Physical Exam Vital Signs Vital Sign - Last 12Hours 11/21/16 06:49 Temp 97.5 Pulse 78 Resp 16 B/P (MAP) 142/98 Pulse Ox 98 Capillary Refill : General Appearance: No Apparent Distress, WD/WN Eyes: Bilateral Eye Normal Inspection, Bilateral Eye PERRL HEENT: PERRL/EOMI, Normal ENT Inspection, Pharynx Normal Neck: Full Range of Motion, Normal Inspection, Non Tender, Supple, Carotid Bruit Respiratory: Chest Non Tender, No Accessory Muscle Use, No Respiratory Distress , Crackles, Decreased Breath Sounds Cardiovascular: Regular Rate, Rhythm, No Edema, No Gallop, No JVD, No Murmur, Normal Peripheral Pulses Gastrointestinal: Normal Bowel Sounds, No Organomegaly, No Pulsatile Mass, Non Tender, Soft Back: Normal Inspection, No CVA Tenderness, No Vertebral Tenderness Extremity: Normal Capillary Refill, Normal Inspection, Normal Range of Motion, Non Tender, No Calf Tenderness, No Pedal Edema Neurologic/Psychiatric: Alert, Oriented x3, No Motor/Sensory Deficits, Normal Mood/Affect Skin: Normal Color, Warm/Dry Lymphatic: No Adenopathy Results Results/Procedures Lab Laboratory Tests 11/22/16 04:30 11/23/16 05:25 Assessment/Plan Admission Diagnosis Assessment: Status post uncomplicated left total knee replacement POD#2 Smoker with wheezing on exam ordered nebulizer treatments Mild postop anemia Assessment and Plan Plan: Nebulizer treatments Monitor closely Pain control Smoking cessation Clinical Quality Measures DVT/VTE Risk/Contraindication: Risk Factor Score Per Nursin RFS Level Per Nursing on Admit: 4+=Very High RITA PEARSON DO November 23, 2016 10:13
[2016-11-23] MEDS: RT-ALBUTEROL/IPRATROPIUM 3 ML (DUONEB) VIAL INH SCH ×3 (10:56→19:09)
[2016-11-23 12:31] VITALS: BP 159/89
--- NOTE | 2016-11-23 13:50 | Physical Therapy Progress Note ---
Therapy Progress Note Patient has not had sleep and is very frustrated and demands sleep. Per RN, PT to resume in a.m. to allow patient to sleep. PT also instructed staff to have patient up ambulating PRN in hallway and perform exercises. WING AYOUB PT November 23, 2016 13:50
[2016-11-23 15:30] VITALS: BP 164/83
[2016-11-24] VITALS: BP 148/87
[2016-11-24] MEDS: oxyCODONE/APAP 5/325MG (PERCOCET 5) TABLET PO PRN ×4 (01:02→09:23)
[2016-11-24] MEDS: fentaNYL INJECTION 100 MCG/2 ML AMP IVP PRN ×3 (01:02→06:45)
--- NOTE | 2016-11-24 08:09 | Progress Note-Standard ---
Standard Progress Note Progress Notes/Assess & Plan Progress/Assessment & Plan Post op check denies paresthesias radiographs--HW well positioned. No fxs LLE--2 plus DP pulse with brisk cap refill. Intact df and PF of toes and ankle s/p LTKA mobilize as able Final Diagnosis improved today Vital Signs Date Time Temp Pulse Resp B/P (MAP) Pulse Ox O2 Delivery O2 Flow Rate FiO2 11/24/16 00:00 100.0 86 20 148/87 96 11/23/16 19:09 97 11/23/16 15:30 96.6 90 28 164/83 97 11/23/16 14:26 94 11/23/16 12:31 99.2 92 24 159/89 98 11/23/16 10:56 94 11/23/16 08:48 98.4 92 22 158/95 99 I & O 11/24/16 07:00 Intake Total 1270 ml Output Total 1150 ml Balance 120 ml Laboratory Tests Test 11/24/16 05:55 Range/Units Hemoglobin 11.7 L 13.3-17.7 G/DL Hematocrit 34 L 40-54 % LLE--no calf tenderness. Neg Tristian's. flexion to 95. Incision clean and dry s/p LTKA DC after PT today DEREK SIFUENTES MD November 24, 2016 08:09
[2016-11-24 08:11] VITALS: BP 138/78
[2016-11-24] MEDS: RT-ALBUTEROL/IPRATROPIUM 3 ML (DUONEB) VIAL INH SCH (08:45)
--- NOTE | 2016-11-24 08:54 | Progress Note (SOAP) ---
Subjective Subjective/Events-last exam Febrile to 100.5 just after midnight. He denies complaints, no cough, nasal congestion, shortness of breath, pain with urination. Date seen by provider: November 24, 2016 Time seen by provider: 07:50 Objective Exam Last Set of Vital Signs Vital Signs Date Time Temp Pulse Resp B/P (MAP) Pulse Ox O2 Delivery O2 Flow Rate FiO2 11/24/16 08:45 97 11/24/16 08:11 73 20 138/78 11/24/16 00:00 100.0 Capillary Refill : I&O Intake and Output 11/24/16 00:00 Intake Total 2990 ml Output Total 2350 ml Balance 640 ml Intake Oral 1990 ml IV Total 1000 ml Output Urine Total 2350 ml # Voids 5 General: Alert, No Acute Distress Lungs: Clear to Auscultation, Normal Air Movement Heart: Regular Rate, No Murmurs Psych/Mental Status: Mental Status NL Results/Procedures Lab Laboratory Tests 11/24/16 05:55: Hemoglobin 11.7L, Hematocrit 34L Assessment/Plan Assessment/Plan Admission Dx Left knee osteoarthritis Plan 1. Left knee replacement- management per Orthopedics, plan for d/c today 2. Fever overnight 11/24- slight and resolved with no intervention, no signs of infection, suspect possible atalectasis, encouraged IS Diagnosis/Problems: Clinical Quality Measures DVT/VTE Risk/Contraindication: Risk Factor Score Per Nursin RFS Level Per Nursing on Admit: 4+=Very High GRUPO SOLOMON MD November 24, 2016 8:54 am
[2016-11-24] MEDS: SENNA W/DOCUSATE (SENOKOT S) TABLET PO SCH (09:23)
[2016-11-24] MEDS: ENOXAPARIN 30 MG/0.3 ML (LOVENOX) SYR SC SCH (09:23)
[2016-11-24] MEDS: MULTIVIT W/MINERALS TAB (THERAGRAN M) PO SCH (09:23)
[2016-11-24] MEDS: ASPIRIN E.C. 81 MG (ECOTRIN) TAB PO SCH (09:25)
--- NOTE | 2016-11-24 10:32 | DISCHARGE SUMMARY ---
DATE OF SERVICE: 11/24/2016 DIAGNOSES: 1. Left knee osteoarthritis. 2. Hypertension. HISTORY OF PRESENT ILLNESS: The patient is a 51-year-old gentleman who underwent a left total knee arthroplasty the day of admission. Postoperatively he progressed well. His wound was clean and dry. Range of motion was 0/5/95 actively. He had obtained independent status with physical therapy. His hematocrit was 34. He was tolerating pain with oral pain medication. CONDITION AT DISCHARGE: Good. DISCHARGE DIET: Regular. FOLLOWUP: Three weeks when physical therapy has been arranged. DISCHARGED MEDICATIONS: Home medications, Percocet and aspirin. ACTIVITY: Weightbearing as tolerated with walker. DIET: Regular. Job ID: [id number] DocumentID: [id number] Dictated Date: 11/24/2016 08:05:51 Film Flat Inspector Date: 11/24/2016 10:31:36 Dictated By: DEREK SIFUENTES MD
--- NOTE | 2016-11-24 10:35 | Physical Therapy Daily Note ---
PT Daily Note-Current Subjective Pain rated 7/10 upon arrival and 9/10 post therapy. Pt agreeable. Pt verbalized understanding of ascending steps and understanding of importance of performing HEP 2x/day. Pt education on importance of maintaining good alignment and straightening the knee vs knee flexed and hip ER'd for position of comfort in bed. Pt education proper gait of foot flat on floor while walking vs walking on toe. Transfers Functional [place] Measure 0=Not Assessed/NA 4=Minimal Assistance 1=Total Assistance 5=Supervision or Setup 2=Maximal Assistance 6=Modified [place] 3=Moderate Assistance 7=Complete IndependenceIRFPAI Quality Coding Scale 6 Independent with activity with or without an assistive device 5 Patient requires set up or clean up by helper. Patient completes activity by themselves 4 Supervision or touching assist (CGA). [place] provide cues , steadying assist 3 The helper provides less than half the effort to complete the activity 2 The helper provides more than half the effort to complete the activity 1 Dependent. The helper does all the effort to complete an activity 7 Patient refused to complete or attempt activity 9 The patient did not perform the activity before the current illness or injury 88 Not attempted due to Medical conditions or safety concerns Pt transfers in/out of bed with manual assist of hands under thigh. Gait Training Gait Assistive Device: FWW Pt amb with FWW and CGA x 120ft. Pt amb with flexed hip and flexed knee, walks on toe. Vc's required to improved posture and attempt to strike heel and place weight through heel then toe. Pt able to correct somewhat but relies heavily on UE for bearing weight. Exercises Supine Ex: LE Protocol Supine Reps: 15 Treatments Pt avoiding good alignment of LE, tending to lay the knee over in flexed position and ER of hip due to pain. Pt was able to perform heel slide properly , otherwise required max vc's and max assist with SAQ and SLR exercises. Little to no quad contraction during the exercises despite vc's. Assessment Current Status: Poor Progress Pt limited by pain. Poor quad contraction. Pt able to flex knee to approximately 80deg. Knee ext approximately 20 deg. Pt will be discharged to home with home care PT to follow. Pt was issued copy of HEP and educated on importance of performing 2xdaily. Pt educated on importance of swelling management with MANISH hose, Cryotherapy and elevation above heart. Pt verbalized understanding. Pt resting with leg in good alignment with cryotherapy in place post therapy. Pt declined CPM as he was going home shortly. PT [facility] Goals Gun Club Manager Goals PT [facility] Goals Time Frame: November 28, 2016 Transfers (B,C,W/C) (FIM): 5 Gait (FIM): 5 Distance: 150' Gait Level of Assist: 5 Gait Assistive Device: FWW Stairs (FIM): 1 # of Steps: 1 Stairs Level Of Assist: 4 (cga) PT Plan Treatment/Plan Treatment Plan: Continue Plan of Care, Discontinue PT, goals met Treatment Plan: Bed Mobility, Education, Functional Activity Solo, Functional Strength, Gait, Safety, Therapeutic Exercise, Transfers Treatment Duration: November 28, 2016 Visits Per Week: 10-11 Minutes/Day (M-F): 15-30 Minutes/Day (Sat/Gamez): 15-30 Time/GCodes Time In: 815 Time Out: 845 Total Billed Treatment Time: 30 Total Billed Treatment 1, ther ex 15min, gait 15 min YOSELYN BERNARD CPTA November 24, 2016 10:34
[2016-11-24 12:00] VITALS: BP 138/78
== END 2016-11-24 12:00 | disposition home health service (06) | DRG 470 ==
LOC: 4TH 06:00 → SURG 06:01 → 4TH 10:30
PROVIDERS: ADMIT Orthopaedic Surgery; ATTEND Orthopaedic Surgery
PROC: 0SRD0J9 Replacement of Left Knee Joint with Synthetic Substitute, Cemented, Open Approach (ICD-10-PCS; principal; 2016-11-21 07:24)
DX: M17.12 Unilateral primary osteoarthritis, left knee (principal); I10 Essential (primary) hypertension; F17.210 Nicotine dependence, cigarettes, uncomplicated; R06.2 Wheezing
CPT/HCPCS: 36415; 73560; 85014; 85018; 94640; 94664; 94760

== ENCOUNTER 2018-01-10 20:15 | Emergency (ER) | payer BC ==
[~2018-01-10] VITALS: Ht 175.3 cm; Wt 83.5 kg
[~2018-01-10 20:15] MED LIST changes: +HYDR-34 PO; -HYDR-3816 PO; +NAPR-1071 PO; -NAPR500T PO; +OXYC-197 PO
[2018-01-10 20:40] LABS: BASOPHILS % (AUTO) 0 % (0-10); EOSINOPHILS # (AUTO) 0.2 10^3/uL (0.0-0.3); EOSINOPHILS % (AUTO) 3 % (0-10); HEMATOCRIT 41 % (40-54); HEMOGLOBIN 14.7 G/DL (13.3-17.7); LYMPHOCYTES # (AUTO) 1.3 X 10^3 (1.0-4.0); LYMPHOCYTES % (AUTO) 19 % (12-44); MEAN CORPUSCULAR HEMOGLOBIN 30 PG (25-34); MEAN CORPUSCULAR HGB CONC 36 G/DL (32-36); MEAN CORPUSCULAR VOLUME 84 FL (80-99); MEAN PLATELET VOLUME 9.9 FL (7.4-10.4); MONOCYTES # (AUTO) 0.5 X 10^3 (0.0-1.0); MONOCYTES % (AUTO) 8 % (0-12); NEUTROPHILS # (AUTO) 4.6 X 10^3 (1.8-7.8); NEUTROPHILS % (AUTO) 70 % (42-75); PLATELET COUNT 204 10^3/uL (130-400); RED BLOOD COUNT 4.87 10^6/uL (4.35-5.85); WHITE BLOOD COUNT 6.5 10^3/uL (4.3-11.0)
[2018-01-10 20:52] LABS: PROTHROMBIN TIME PATIENT 13.1 SEC (12.2-14.7)
--- NOTE | 2018-01-10 21:01 | Diagnostic Imaging Report ---
INDICATION: Facial injury. EXAMINATION: CT maxillofacial obtained with axial slices without contrast and sagittal and coronal reconstructions. FINDINGS: There is a fracture of the posterior aspect of the nasal bone on the left side with mild displacement. The anterior fragment is displaced medially by about 1-2 mm. There are no other fractures detected. The paranasal sinuses show no fluid levels. There is some periorbital soft tissue swelling on the left side and facial swelling. There is deviation of the nasal septum from the left side which appears chronic. There is no intraorbital hematoma. IMPRESSION: There is an acute fracture of the posterior portion of the left nasal bone with mild displacement, as above. No other fractures are visualized. The sinuses are clear. There is left periorbital and facial soft tissue swelling and bruising. There is no intraorbital hematoma. Dictated by: Dictated on workstation # [id number]
[2018-01-10 21:03] LABS: ALANINE AMINOTRANSFERASE 24 U/L (0-55); ALBUMIN 4.1 GM/DL (3.2-4.5); ALKALINE PHOSPHATASE 99 U/L (40-136); BILIRUBIN,TOTAL 0.4 MG/DL (0.1-1.0); BUN/CREATININE RATIO 17; CALCIUM 8.8 MG/DL (8.5-10.1); CARBON DIOXIDE 20 MMOL/L (21-32); CHLORIDE 103 MMOL/L (98-107); CREATININE SERUM 0.84 MG/DL (0.60-1.30); GFR ESTIMATED > 60; GLUCOSE 109 MG/DL (70-105); POTASSIUM 4.4 MMOL/L (3.6-5.0); SODIUM 135 MMOL/L (135-145); TOTAL PROTEIN 7.3 GM/DL (6.4-8.2)
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
[2018-01-10] MEDS ORDERED: ALPRAZolam 0.25 MG (XANAX) TAB ONE (21:23)
[2018-01-10] MEDS ORDERED: fentaNYL INJECTION 100 MCG/2 ML AMP IVP STA (21:37)
[2018-01-10] MEDS ORDERED: NS IV 1000 ML 1,000 ML ONE (22:10)
[2018-01-10 22:21] LABS: BILIRUBIN,URINE NEGATIVE (NEGATIVE); CLARITY,URINE CLEAR; COLOR,URINE YELLOW; GLUCOSE, URINE (UA) NEGATIVE (NEGATIVE); KETONES,URINE NEGATIVE (NEGATIVE); LEUKOCYTE ESTERASE ,URINE NEGATIVE (NEGATIVE); NITRITE,URINE NEGATIVE (NEGATIVE); PH,URINE 6.5 (5-9); PROTEIN,URINE NEGATIVE (NEGATIVE); UROBILINOGEN,URINE NORMAL (NORMAL)
[2018-01-10 22:30] LABS: BACTERIA,URINE NEGATIVE /HPF
[2018-01-10 22:32] LABS: AMPHETAMINE SCREEN, URINE NEGATIVE (NEGATIVE); BARBITURATE SCREEN URINE NEGATIVE (NEGATIVE); BENZODIAZEPINES SCREEN URINE NEGATIVE (NEGATIVE); CANNABINOID SCREEN, URINE NEGATIVE (NEGATIVE); COCAINE SCREEN URINE NEGATIVE (NEGATIVE); METHADONE STAT NEGATIVE (NEGATIVE); METHAMPHETAMINE SCREEN URINE S NEGATIVE (NEGATIVE); OPIATE SCREEN URINE NEGATIVE (NEGATIVE); OXYCODONE STAT NEGATIVE (NEGATIVE); PROPOXYPHENE STAT NEGATIVE (NEGATIVE); TRICYCLIC ANTIDEPRESSANTS SCRE NEGATIVE (NEGATIVE)
[2018-01-10 23:30] VITALS: BP 109/73
[2018-01-11] MEDS ORDERED: ONDA8TAB9 PO (12:45)
== END 2018-01-10 23:32 | disposition home or self-care (01) ==
LOC: EDUNIT# 20:15 → ER 20:16
DX: S02.2XXA Fracture of nasal bones, initial encounter for closed fracture (principal); S05.12XA Contusion of eyeball and orbital tissues, left eye, initial encounter; F41.9 Anxiety disorder, unspecified; F10.129 Alcohol abuse with intoxication, unspecified; Z98.890 Other specified postprocedural states; Y04.8XXA Assault by other bodily force, initial encounter
CPT/HCPCS: 36415; 70450; 70486; 72125; 80053; 80306; 80320; 81000; 85025; 85610; 85730; 96361; 96374

== ENCOUNTER 2018-01-11 10:52 | Emergency (ER) | payer BC ==
[~2018-01-11] VITALS: Ht 175.3 cm; Wt 80.7 kg
[2018-01-11] MEDS ORDERED: CYCLOBENZAPRINE 10 MG (FLEXERIL) TAB PO STA (11:32)
[2018-01-11] MEDS ORDERED: D5 NS 1000 ML IV SOLUTION 1,000 ML IV ONE (11:32)
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
[2018-01-11] MEDS ORDERED: ONDANSETRON 4 MG (ZOFRAN) ORAL DISSOLVE TAB SL STA (11:56)
[2018-01-11] MEDS ORDERED: SALINE NASAL SPRAY (OCEAN) 45 ML BTL PRN (12:00)
[2018-01-11] MEDS ORDERED: ONDA8TAB9 PO (12:45)
[2018-01-11 13:00] VITALS: BP 129/81
== END 2018-01-11 13:00 | disposition home or self-care (01) ==
LOC: EDUNIT# 10:52 → ER 10:53
DX: S09.90XA Unspecified injury of head, initial encounter (principal); S05.12XA Contusion of eyeball and orbital tissues, left eye, initial encounter; R42 Dizziness and giddiness; F17.210 Nicotine dependence, cigarettes, uncomplicated; F41.9 Anxiety disorder, unspecified; Z82.49 Family history of ischemic heart disease and other diseases of the circulatory system; Y04.0XXA Assault by unarmed brawl or fight, initial encounter
CPT/HCPCS: 96360

== ENCOUNTER 2018-01-15 05:35 | Outpatient (CLI) | payer BC ==
[~2018-01-15] VITALS: Ht 175.3 cm; Wt 80.7 kg
[~2018-01-15 05:35] MED LIST changes: +ONDA8TAB9 PO
[2018-01-15] MEDS ORDERED: MECL-106 PO (20:51)
== END 2018-01-15 10:07 | disposition home or self-care (01) ==
LOC: PREOP 05:35
PROVIDERS: ATTEND Otolaryngology Otolaryngology/Facial Plastic Surgery
DX: Z01.818 Encounter for other preprocedural examination (principal)

== ENCOUNTER 2018-01-15 18:26 | Emergency (ER) | payer BC ==
[~2018-01-15] VITALS: Ht 175.3 cm; Wt 81.6 kg
--- OUTSIDE RECORDS SUMMARY | 2018-01-15 18:34 | XMS REPORT ---
Author Author ELIZABETH MCGEE Organization [facility] [place] Address [address] [place] [address] Care Team Providers Care Php Wordpress Developer Name Role Phone ELIZABETH MCGEE Unavailable PROBLEMS Type Condition ICD9-CM Code KLC44-TC Code Onset Dates Condition Status SNOMED Code Problem Tobacco abuse Z72.0 Active 71685261 Problem Osteoarthritis M19.90 Active 279459570 Problem Back pain M54.9 Active 965149630 Problem Arthritis M19.90 Active 7790958 Problem Knee pain, left M25.562 Active 75242308 Problem Knee pain, right M25.561 Active 01604094 Problem Anxiety F41.9 Active 43645500 Problem Other chronic pain G89.29 Active 13321584 Problem Arthralgia M25.50 Active 95304382 Problem Hypertension I10 Active 10662379 Problem Essential hypertension I10 Active 80861292 Problem Hyperlipidemia, unspecified hyperlipidemia type E78.5 Active 01229761 ALLERGIES No Information ENCOUNTERS Encounter Location Date Diagnosis [place] [id number] [place] [address] 06518- 9702 Oct, [place] [id number] [place] [address] 03155- 4647 Oct, Other chronic pain G89.29 [place] [id number] [place] [address] 12477- 7798 Aug, Other chronic pain G89.29 ; Pain in left knee M25.562 ; Pain in right knee M25.561 and Anxiety F41.9 [place] [address] [address] 4257 Jul, Acute pain of right shoulder M25.511 [place] [id number] [place] [address] 19075- 6899 Jul, Other chronic pain G89.29 [facility] [place] [id number] [address] Jul, [facility] [place] [id number] [place] [address] 98735 2546 Jul, Other chronic pain G89.29 and Acute pain of right shoulder M25.511 [facility] [place] [id number] [place] [address] 33979 2546 Jun, Acute pain of right shoulder M25.511 ; Other chronic pain G89.29 ; Pain in left knee M25.562 and Pain in right knee M25.561 [facility] [place] [id number] [place] [address] 99372- 6036 May, Pain in right knee M25.561 [facility] [place] [id number] [place] [address] 96410- 5796 May, Pain in right knee M25.561 [facility] [place] [id number] [place] [address] 96299- 1226 Apr, [facility] [place] [id number] [place] [address] 03207- 9466 Apr, Pain in right knee M25.561 [facility] [place] [id number] [place] [address] 44707- 2546 Apr, [facility] [place] [id number] [place] [address] 77919- 4206 Mar, Pain in right knee M25.561 and Other chronic pain G89.29 [facility] [place] [id number] [address] 9[address] November, [facility] [place] [id number] [place] [address] 36785 2546 November, [facility] [place] [id number] [place] [address] 97685- 5036 November, Pain in right knee M25.561 [facility] [place] [id number] [address] 47[address] Oct, [facility] [place] [address] [address] 7155 Oct, Pain in right knee M25.561 [facility] [place] [address] [address] 6196 Sep, Pain in right knee M25.561 [facility] [place] [id number] [place] [address] 72350- 2036 Sep, [facility] [place] [address] [place] [address] 14504- 6050 Aug, Knee pain, right M25.561 [facility] [place] [address] [address] 1899 Aug, Pain in right knee M25.561 [facility] [place] [id number] [place] [address] 07910- 6877 Aug, [facility] [place] [address], [place] [address]- 5753 Aug, [facility] [place] [id number] [place] [address] 53387- 6122 Jul, Pain in right knee M25.561 [facility] [place] [address] [address]- 8157 Jul, Right wrist pain M25.531 ; Pain in right knee M25.561 and Other chronic pain G89.29 [facility] [place] [id number] [address]- 9998 Jul, Pain in left wrist M25.532 ; Osteoarthritis M19.90 ; Arthralgia M25.50 ; Hypertension I10 and Pain in right wrist M25.531 [facility] [place] [address] [address]- 2962 Jul, Osteoarthritis M19.90 ; Arthralgia M25.50 ; Hypertension I10 ; Pain in right wrist M25.531 and Pain in left wrist M25.532 [place] [id number] [place] [address] 67874- 7738 Apr, [place] [id number] [place] [address] 36875- 4414 Apr, Preop general physical exam Z01.818 ; Hyperlipidemia, unspecified hyperlipidemia type E78.5 ; Tobacco abuse Z72.0 and Essential hypertension I10 [place] [id number] [place] [address] 70223- 7063 Feb, [place] [address] 29035- 9767 30 Dec, 2015 [place] [address] 78725- 0313 16 Dec, 2015 Chondromalacia patellae, right knee M22.41 [place] [address] 62081- 5190 Dec, Chondromalacia patellae, right knee M22.41 [place] [id number] [place] [address] 86033- 9494 November, Knee pain, left M25.562 and Hypertension I10 [place] [id number] [place] [address] 52957- 4455 14 Oct, 2015 Chondromalacia patellae, right knee M22.41 and Chondromalacia patellae of left knee M22.42 [place] [id number] [place] [address] 76811- 1536 11 Oct, 2015 Arthralgia M25.50 and Hypertension I10 [place] [address] 66215- 9378 29 Sep, 2015 Osteoarthritis M19.90 [place] [id number] [place] [address] 74023- 7834 10 Jun, 2015 Osteoarthritis of knees, bilateral M17.0 [place] [address] [place] [address]- 2546 Jun, Back pain M54.9 ; Tobacco abuse Z72.0 ; Knee pain, right M25.561 ; Knee pain, left M25.562 and Arthritis M19.90 [facility] [place] [id number] [address] 2546 Jun, [facility] [place] [address], [place] [address]- 2873 Jun, Arthritis M19.90 [facility] [place] [id number] [address] May, Arthritis M19.90 ; Knee pain, right M25.561 ; Knee pain, left M25.562 and Tobacco abuse Z72.0 [facility] [address] [facility] [id number] [id number] Feb, Dental examination V72.2 IMMUNIZATIONS No Known Immunizations SOCIAL HISTORY Never Assessed REASON FOR VISIT Medication question PLAN OF CARE VITAL SIGNS MEDICATIONS Unknown Medications RESULTS No Results PROCEDURES No Known procedures INSTRUCTIONS MEDICATIONS ADMINISTERED No Known Medications MEDICAL (GENERAL) HISTORY Type Description Date Medical History chronic pain-bilat knees Surgical History Appendectomy Surgical History Spinal patch Surgical History arthroscopy left knee 12/2015 Surgical History left knee replacement 11/2016 Hospitalization History surgery
--- OUTSIDE RECORDS SUMMARY | 2018-01-15 18:34 | XMS REPORT ---
Author Author ELIZABETH MCGEE Organization [facility] Address [address] [place] [address] Care Team Providers Care Ct Manager Name Role Phone ELIZABETH MCGEE Unavailable PROBLEMS Type Condition ICD9-CM Code TEE39-IH Code Onset Dates Condition Status SNOMED Code Problem Tobacco abuse Z72.0 Active 21450062 Problem Osteoarthritis M19.90 Active 014126533 Problem Back pain M54.9 Active 924240579 Problem Arthritis M19.90 Active 3680718 Problem Knee pain, left M25.562 Active 77011279 Problem Knee pain, right M25.561 Active 65415042 Problem Anxiety F41.9 Active 75988033 Problem Other chronic pain G89.29 Active 82660197 Problem Arthralgia M25.50 Active 68285268 Problem Hypertension I10 Active 12988075 Problem Essential hypertension I10 Active 92113708 Problem Hyperlipidemia, unspecified hyperlipidemia type E78.5 Active 60238100 ALLERGIES No Known Allergies ENCOUNTERS Encounter Location Date Diagnosis [place] [id number] [place] [address] 83334- 8295 Oct, [place] [id number] [place] [address] 45332- 6353 Oct, Other chronic pain G89.29 [place] [id number] [place] [address] 54231- 5920 Aug, Other chronic pain G89.29 ; Pain in left knee M25.562 ; Pain in right knee M25.561 and Anxiety F41.9 [place] [id number] [place] [address] 96929- 2201 Jul, Acute pain of right shoulder M25.511 [place] [id number] [place] [address] 97771- 6152 Jul, Other chronic pain G89.29 [facility] [id number] [address] 2546 Jul, [facility] [id number] [place] [address] 86122 2546 Jul, Other chronic pain G89.29 and Acute pain of right shoulder M25.511 [facility] [id number] [place] [address] 94203 2546 Jun, Acute pain of right shoulder M25.511 ; Other chronic pain G89.29 ; Pain in left knee M25.562 and Pain in right knee M25.561 [facility] [id number] [place] [address] 94870- 5226 May, Pain in right knee M25.561 [facility] [id number] [place] [address] 34288 2546 May, Pain in right knee M25.561 [facility] [id number] [place] [address] 30345 2546 Apr, [facility] [id number] [place] [address] 24446- 3916 Apr, Pain in right knee M25.561 [facility] [id number] [place] [address] 46569 2546 Apr, [facility] [address] [place] [address] 85179 2546 Mar, Pain in right knee M25.561 and Other chronic pain G89.29 [facility] [address], [place] [address]- 9046 November, [facility] [id number] [place] [address] 19619 2546 November, [facility] [id number], [place] [address]- 8256 November, Pain in right knee M25.561 [facility] [id number] [address]- 0129 Oct, [facility] [address], [place] [address]- 6829 Oct, Pain in right knee M25.561 [facility] [address], [place] [address]- 2606 Sep, Pain in right knee M25.561 [facility] [id number] [place] [address] 93144- 8285 Sep, [facility] [address] [place] [address] 68657- 4612 Aug, Knee pain, right M25.561 [facility] [address], [place] [address]- 2004 Aug, Pain in right knee M25.561 [facility] [id number] [place] [address] 71736- 5654 Aug, [facility] [address], [place] [address]- 3610 Aug, [facility] [id number] [place] [address] 43521- 4581 Jul, Pain in right knee M25.561 [facility] [address], [place] [address]- 8147 Jul, Right wrist pain M25.531 ; Pain in right knee M25.561 and Other chronic pain G89.29 [facility] [id number], [place] [address]- 3032 Jul, Pain in left wrist M25.532 ; Osteoarthritis M19.90 ; Arthralgia M25.50 ; Hypertension I10 and Pain in right wrist M25.531 [facility] [id number] [address]- 6576 Jul, Osteoarthritis M19.90 ; Arthralgia M25.50 ; Hypertension I10 ; Pain in right wrist M25.531 and Pain in left wrist M25.532 [place] [id number] [place] [address] 75910- 2353 Apr, [place] [id number] [place] [address] 35054- 8620 Apr, Preop general physical exam Z01.818 ; Hyperlipidemia, unspecified hyperlipidemia type E78.5 ; Tobacco abuse Z72.0 and Essential hypertension I10 [place] [id number] [place] [address] 95615- 0069 Feb, [place] [address] 78834- 1177 30 Dec, 2015 [place] [address] 85480- 8032 16 Dec, 2015 Chondromalacia patellae, right knee M22.41 [place] [address] 39825- 5495 15 Dec, 2015 Chondromalacia patellae, right knee M22.41 [place] [id number] [place] [address] 83616- 6730 November, Knee pain, left M25.562 and Hypertension I10 [place] [id number] [place] [address] 68882- 0739 14 Oct, 2015 Chondromalacia patellae, right knee M22.41 and Chondromalacia patellae of left knee M22.42 [place] [id number] [place] [address] 63296- 1007 11 Oct, 2015 Arthralgia M25.50 and Hypertension I10 [place] [address] 47425- 4598 29 Sep, 2015 Osteoarthritis M19.90 [place] [id number] [place] [address] 02312- 6588 10 Jun, 2015 Osteoarthritis of knees, bilateral M17.0 [place] [address] [place] [address]- 2546 08 Jun, 2015 Back pain M54.9 ; Tobacco abuse Z72.0 ; Knee pain, right M25.561 ; Knee pain, left M25.562 and Arthritis M19.90 [facility] [address], [place] [address] 2546 Jun, [facility] [address] [address]- 0151 Jun, Arthritis M19.90 [facility] [id number] [place] [address] 202090- 5131 May, Arthritis M19.90 ; Knee pain, right M25.561 ; Knee pain, left M25.562 and Tobacco abuse Z72.0 [facility] [id number] [id number] Feb, Dental examination V72.2 IMMUNIZATIONS Vaccine Route Administration Date Status TORADOL (IM) 60 MG/2ML (UP TO 15 MG) IM Intramuscular Sep 02, 2017 Administered SOCIAL HISTORY Never Assessed REASON FOR VISIT lab f/u -- naomie garsia PLAN OF CARE VITAL SIGNS Height 67.8 in 2017-09-02 Weight 183.6 lbs 2017-09-02 Temperature 98.0 degrees Fahrenheit 2017-09-02 Heart Rate 76 bpm 2017-09-02 Respiratory Rate 18 2017-09-02 BMI 28.08 kg/m2 2017-09-02 Blood pressure systolic 160 mmHg 2017-09-02 Blood pressure diastolic 100 mmHg 2017-09-02 MEDICATIONS Medication Instructions Dosage Frequency Start Date End Date Duration Status Diclofenac Sodium 75 MG Orally Twice a day 1 tablet with food or milk 12h Aug, November, 30 day(s) Active Paroxetine HCl 20 mg Orally Once a day 1 tablet in the morning 24h Aug, 30 day(s) Active RESULTS No Results PROCEDURES Procedure Date Ordered Result Body Site TORADOL (IM) 60 MG/2ML (UP TO 15 MG) Sep 02, 2017 THER/PROPH/DIAG INJ, SC/IM Sep 02, 2017 INSTRUCTIONS MEDICATIONS ADMINISTERED No Known Medications MEDICAL (GENERAL) HISTORY Type Description Date Medical History chronic pain-bilat knees Surgical History Appendectomy Surgical History Spinal patch Surgical History arthroscopy left knee 12/2015 Surgical History left knee replacement 11/2016 Hospitalization History surgery
--- OUTSIDE RECORDS SUMMARY | 2018-01-15 18:34 | XMS REPORT ---
Author Author STEVAN CHEN [facility] Address [address] [place] [address] Care Team Providers Care Machine Bander And Cellophaner Helper Name Role Phone STEVAN CHEN Unavailable PROBLEMS Type Condition ICD9-CM Code PGZ50-UL Code Onset Dates Condition Status SNOMED Code Problem Knee pain, left M25.562 Active 35344689 Problem Back pain M54.9 Active 481083648 Problem Knee pain, right M25.561 Active 13227881 Problem Arthritis M19.90 Active 6099493 Problem Tobacco abuse Z72.0 Active 62977701 Problem Other chronic pain G89.29 Active 83824348 Problem Essential hypertension I10 Active 14273506 Problem Arthralgia M25.50 Active 72427541 Problem Osteoarthritis M19.90 Active 514795579 Problem Hyperlipidemia, unspecified hyperlipidemia type E78.5 Active 13912587 Problem Hypertension I10 Active 90803952 ALLERGIES No Information SOCIAL HISTORY Never Assessed PLAN OF CARE VITAL SIGNS MEDICATIONS Medication Instructions Dosage Frequency Start Date End Date Duration Status Hydrocodone-Acetaminophen 7.5-325 MG Orally 4 times a day 1 tablet 6h November, November, 15 days Active RESULTS No Results PROCEDURES No Known procedures IMMUNIZATIONS No Known Immunizations MEDICAL (GENERAL) HISTORY Type Description Date Medical History chronic pain-bilat knees Surgical History Appendectomy Surgical History Spinal patch Surgical History arthroscopy left knee 12/2015 Surgical History left knee replacement 11/2016 Hospitalization History surgery
--- OUTSIDE RECORDS SUMMARY | 2018-01-15 18:34 | XMS REPORT ---
Author Author ELIZABETH MCGEE Organization [facility] Address [address] [place] [address] Care Team Providers Care Kst Operator Name Role Phone ELIZABETH MCGEE Unavailable PROBLEMS Type Condition ICD9-CM Code JXT73-GD Code Onset Dates Condition Status SNOMED Code Problem Tobacco abuse Z72.0 Active 54357796 Problem Osteoarthritis M19.90 Active 193992716 Problem Back pain M54.9 Active 594055982 Problem Arthritis M19.90 Active 1362441 Problem Knee pain, left M25.562 Active 75192492 Problem Knee pain, right M25.561 Active 22347996 Problem Anxiety F41.9 Active 61182874 Problem Other chronic pain G89.29 Active 11925836 Problem Arthralgia M25.50 Active 73629471 Problem Hypertension I10 Active 98295023 Problem Essential hypertension I10 Active 61257862 Problem Hyperlipidemia, unspecified hyperlipidemia type E78.5 Active 71800157 ALLERGIES No Information ENCOUNTERS Encounter Location Date Diagnosis [place] [id number] [place] [address] 20008- 7874 Oct, [place] [id number] [place] [address] 26452- 4228 Oct, Other chronic pain G89.29 [place] [id number] [place] [address] 17079- 2123 Aug, Other chronic pain G89.29 ; Pain in left knee M25.562 ; Pain in right knee M25.561 and Anxiety F41.9 [place] [id number] [place] [address] 92405- 1724 Jul, Acute pain of right shoulder M25.511 [place] [id number] [place] [address] 54858- 5294 Jul, Other chronic pain G89.29 [facility] [id number] [address] Jul, [facility] [id number] [place] [address] 45618 2546 Jul, Other chronic pain G89.29 and Acute pain of right shoulder M25.511 [facility] [id number] [place] [address] 25743 2546 Jun, Acute pain of right shoulder M25.511 ; Other chronic pain G89.29 ; Pain in left knee M25.562 and Pain in right knee M25.561 [facility] [id number] [place] [address] 16754- 4946 May, Pain in right knee M25.561 [facility] [id number] [place] [address] 69811- 3966 May, Pain in right knee M25.561 [facility] [id number] [place] [address] 30907- 0406 Apr, [facility] [id number] [place] [address] 88983- 8246 Apr, Pain in right knee M25.561 [facility] [id number] [place] [address] 76801- 2546 Apr, [facility] [id number] [place] [address] 73629- 0256 Mar, Pain in right knee M25.561 and Other chronic pain G89.29 [facility] [id number] [address] November, [facility] [id number] [place] [address] 70233 2546 November, [facility] [id number] [place] [address] 75143- 1176 November, Pain in right knee M25.561 [facility] [id number] [address] 9789 Oct, [facility] [address], [place] [address] 6102 Oct, Pain in right knee M25.561 [facility] [address], [place] [address] 7086 Sep, Pain in right knee M25.561 [facility] [id number] [place] [address] 12541- 1656 Sep, [facility] [id number] [place] [address] 06804- 8318 Aug, Knee pain, right M25.561 [facility] [address], [place] [address] 5539 Aug, Pain in right knee M25.561 [facility] [id number] [place] [address] 21872- 8181 Aug, [facility] [address], [place] [address] 8024 Aug, [facility] [id number] [place] [address] 65080- 8789 Jul, Pain in right knee M25.561 [facility] [address], [place] [address] 1381 Jul, Right wrist pain M25.531 ; Pain in right knee M25.561 and Other chronic pain G89.29 [facility] [id number] [address] 7335 Jul, Pain in left wrist M25.532 ; Osteoarthritis M19.90 ; Arthralgia M25.50 ; Hypertension I10 and Pain in right wrist M25.531 [facility] [address], [place] [address]- 1561 Jul, Osteoarthritis M19.90 ; Arthralgia M25.50 ; Hypertension I10 ; Pain in right wrist M25.531 and Pain in left wrist M25.532 [place] [id number] [place] [address] 41112- 7690 Apr, [place] [id number] [place] [address] 31149- 0698 Apr, Preop general physical exam Z01.818 ; Hyperlipidemia, unspecified hyperlipidemia type E78.5 ; Tobacco abuse Z72.0 and Essential hypertension I10 [place] [id number] [place] [address] 01521- 0706 Feb, [place] [address] 6[address]01- 4216 30 Dec, 2015 [place] [address] 97279- 0661 16 Dec, 2015 Chondromalacia patellae, right knee M22.41 [place] [address] 63261- 3489 Dec, Chondromalacia patellae, right knee M22.41 [place] [id number] [place] [address] 91401- 6445 November, Knee pain, left M25.562 and Hypertension I10 [place] [id number] [place] [address] 00740- 8150 14 Oct, 2015 Chondromalacia patellae, right knee M22.41 and Chondromalacia patellae of left knee M22.42 [place] [id number] [place] [address] 12045- 8263 11 Oct, 2015 Arthralgia M25.50 and Hypertension I10 [place] [address] 17371- 1736 29 Sep, 2015 Osteoarthritis M19.90 [place] [id number] [place] [address] 50600- 8147 10 Jun, 2015 Osteoarthritis of knees, bilateral M17.0 [place] [address] [place] [address]- 2546 Jun, Back pain M54.9 ; Tobacco abuse Z72.0 ; Knee pain, right M25.561 ; Knee pain, left M25.562 and Arthritis M19.90 [facility] [id number] [address]- 2546 Jun, [facility] [id number] [address]- 2546 Jun, Arthritis M19.90 [facility] [id number] [address] 2546 May, Arthritis M19.90 ; Knee pain, right M25.561 ; Knee pain, left M25.562 and Tobacco abuse Z72.0 [facility] [address] [facility] [id number] [id number] Feb, Dental examination V72.2 IMMUNIZATIONS No Known Immunizations SOCIAL HISTORY Never Assessed REASON FOR VISIT Controlled Med Refill PLAN OF CARE VITAL SIGNS MEDICATIONS Medication Instructions Dosage Frequency Start Date End Date Duration Status Hydrocodone-Acetaminophen 10-325 MG Orally every 6 hrs. Prescription must last 28 days. 2 tablet as needed Apr, Active RESULTS No Results PROCEDURES No Known procedures INSTRUCTIONS MEDICATIONS ADMINISTERED No Known Medications MEDICAL (GENERAL) HISTORY Type Description Date Medical History chronic pain-bilat knees Surgical History Appendectomy Surgical History Spinal patch Surgical History arthroscopy left knee 12/2015 Surgical History left knee replacement 11/2016 Hospitalization History surgery
--- OUTSIDE RECORDS SUMMARY | 2018-01-15 18:35 | XMS REPORT ---
Author Author STEVAN CHEN [facility] Address [address] [place] [address] Care Team Providers Care Photoengraving Supervisor Name Role Phone STEVAN CHEN Unavailable PROBLEMS Type Condition ICD9-CM Code ZOZ58-EF Code Onset Dates Condition Status SNOMED Code Problem Knee pain, left M25.562 Active 26681183 Problem Back pain M54.9 Active 267838670 Problem Knee pain, right M25.561 Active 11510888 Problem Arthritis M19.90 Active 8747017 Problem Tobacco abuse Z72.0 Active 28746153 Problem Other chronic pain G89.29 Active 71200103 Problem Essential hypertension I10 Active 04888554 Problem Arthralgia M25.50 Active 18663787 Problem Osteoarthritis M19.90 Active 487311494 Problem Hyperlipidemia, unspecified hyperlipidemia type E78.5 Active 74222024 Problem Hypertension I10 Active 79984326 ALLERGIES No Information SOCIAL HISTORY Never Assessed PLAN OF CARE VITAL SIGNS MEDICATIONS Medication Instructions Dosage Frequency Start Date End Date Duration Status Hydrocodone-Acetaminophen 7.5-325 MG Orally 4 times a day 1 tablet 6h Sep, 28 days Active RESULTS No Results PROCEDURES No Known procedures IMMUNIZATIONS No Known Immunizations MEDICAL (GENERAL) HISTORY Type Description Date Medical History chronic pain-bilat knees Surgical History Appendectomy Surgical History Spinal patch Surgical History arthroscopy left knee 12/2015 Surgical History left knee replacement 11/2016 Hospitalization History surgery
--- OUTSIDE RECORDS SUMMARY | 2018-01-15 18:35 | XMS REPORT ---
Author Author STEVAN CHNE [facility] Address [address] [place] [address] Care Team Providers Care Sampling Theory Teacher Name Role Phone STEVAN CHEN Unavailable PROBLEMS Type Condition ICD9-CM Code KDB31-FC Code Onset Dates Condition Status SNOMED Code Problem Knee pain, left M25.562 Active 44644694 Problem Back pain M54.9 Active 088293477 Problem Knee pain, right M25.561 Active 95639857 Problem Arthritis M19.90 Active 1286198 Problem Tobacco abuse Z72.0 Active 31603308 Problem Other chronic pain G89.29 Active 38729430 Problem Essential hypertension I10 Active 83923867 Problem Arthralgia M25.50 Active 52532803 Problem Osteoarthritis M19.90 Active 692215137 Problem Hyperlipidemia, unspecified hyperlipidemia type E78.5 Active 36896430 Problem Hypertension I10 Active 95207027 ALLERGIES No Information SOCIAL HISTORY Never Assessed PLAN OF CARE VITAL SIGNS MEDICATIONS No Known Medications RESULTS No Results PROCEDURES No Known procedures IMMUNIZATIONS No Known Immunizations MEDICAL (GENERAL) HISTORY Type Description Date Medical History chronic pain-bilat knees Surgical History Appendectomy Surgical History Spinal patch Surgical History arthroscopy left knee 12/2015 Surgical History left knee replacement 11/2016 Hospitalization History surgery
--- OUTSIDE RECORDS SUMMARY | 2018-01-15 18:35 | XMS REPORT ---
Author Author ELIZABETH MCGEE Organization [facility] Address [address] [place] [address] Care Team Providers Care Globe Cleaner Name Role Phone ELIZABETH MCGEE Unavailable PROBLEMS Type Condition ICD9-CM Code PXN21-SB Code Onset Dates Condition Status SNOMED Code Problem Tobacco abuse Z72.0 Active 43907391 Problem Osteoarthritis M19.90 Active 780804258 Problem Back pain M54.9 Active 653589819 Problem Arthritis M19.90 Active 4565548 Problem Knee pain, left M25.562 Active 80567186 Problem Knee pain, right M25.561 Active 98812859 Problem Anxiety F41.9 Active 44610863 Problem Other chronic pain G89.29 Active 32882047 Problem Arthralgia M25.50 Active 64480506 Problem Hypertension I10 Active 46315696 Problem Essential hypertension I10 Active 35644711 Problem Hyperlipidemia, unspecified hyperlipidemia type E78.5 Active 25747542 ALLERGIES No Information ENCOUNTERS Encounter Location Date Diagnosis [place] [id number] [place] [address] 51293- 4292 Oct, [place] [id number] [place] [address] 74516- 8319 Oct, Other chronic pain G89.29 [place] [id number] [place] [address] 66069- 5080 Aug, Other chronic pain G89.29 ; Pain in left knee M25.562 ; Pain in right knee M25.561 and Anxiety F41.9 [place] [address] 08207- 1251 Jul, Acute pain of right shoulder M25.511 [place] [id number] [place] [address] 85136- 0243 Jul, Other chronic pain G89.29 [facility] [id number], [place] [address]- 6038 Jul, [facility] [id number] [place] [address] 72363 2546 Jul, Other chronic pain G89.29 and Acute pain of right shoulder M25.511 [facility] [id number] [place] [address] 44943 2546 Jun, Acute pain of right shoulder M25.511 ; Other chronic pain G89.29 ; Pain in left knee M25.562 and Pain in right knee M25.561 [facility] [id number] [place] [address] 63799- 1596 May, Pain in right knee M25.561 [facility] [id number] [place] [address] 45549- 3396 May, Pain in right knee M25.561 [facility] [id number] [place] [address] 93625- 4156 Apr, [facility] [id number] [place] [address] 15940- 2056 Apr, Pain in right knee M25.561 [facility] [id number] [place] [address] 44617- 2546 Apr, [facility] [id number] [place] [address] 69312- 6816 Mar, Pain in right knee M25.561 and Other chronic pain G89.29 [facility] [id number] [address]- 1896 November, [facility] [id number] [place] [address] 62479 2546 November, [facility] [id number] [place] [address] 68239- 2886 November, Pain in right knee M25.561 [facility] [id number], [place] [address]- 5838 Oct, [facility] [address], [place] [address]- 2160 Oct, Pain in right knee M25.561 [facility] [address], [place] [address]- 7776 Sep, Pain in right knee M25.561 [facility] [id number] [place] [address] 40244- 3536 Sep, [facility] [address] [place] [address] 56190- 0632 Aug, Knee pain, right M25.561 [facility] [address], [place] [address]- 8785 Aug, Pain in right knee M25.561 [facility] [id number] [place] [address] 91094- 3133 Aug, [facility] [address], [place] [address]- 0089 Aug, [facility] [id number] [place] [address] 58233- 8290 Jul, Pain in right knee M25.561 [facility] [address], [place] [address]- 1671 Jul, Right wrist pain M25.531 ; Pain in right knee M25.561 and Other chronic pain G89.29 [facility] [id number], [place] [address]- 3597 Jul, Pain in left wrist M25.532 ; Osteoarthritis M19.90 ; Arthralgia M25.50 ; Hypertension I10 and Pain in right wrist M25.531 [facility] [address], [place] [address]- 3593 Jul, Osteoarthritis M19.90 ; Arthralgia M25.50 ; Hypertension I10 ; Pain in right wrist M25.531 and Pain in left wrist M25.532 [place] [id number] [place] [address] 93824- 5339 Apr, [place] [id number] [place] [address] 82531- 8617 Apr, Preop general physical exam Z01.818 ; Hyperlipidemia, unspecified hyperlipidemia type E78.5 ; Tobacco abuse Z72.0 and Essential hypertension I10 [place] [id number] [place] [address] 99268- 0448 Feb, [place] [address] 42724- 1266 30 Dec, 2015 [place] [address] 70126- 5732 16 Dec, 2015 Chondromalacia patellae, right knee M22.41 [place] [address] 25707- 1053 Dec, Chondromalacia patellae, right knee M22.41 [place] [id number] [place] [address] 84622- 4889 November, Knee pain, left M25.562 and Hypertension I10 [place] [id number] [place] [address] 40161- 5331 14 Oct, 2015 Chondromalacia patellae, right knee M22.41 and Chondromalacia patellae of left knee M22.42 [place] [address] [place] [address] 41677- 3757 11 Oct, 2015 Arthralgia M25.50 and Hypertension I10 [place] [address] 37616- 9599 29 Sep, 2015 Osteoarthritis M19.90 [place] [id number] [place] [address] 70631- 8057 10 Jun, 2015 Osteoarthritis of knees, bilateral M17.0 [place] [address] [place] [address]- 2546 Jun, Back pain M54.9 ; Tobacco abuse Z72.0 ; Knee pain, right M25.561 ; Knee pain, left M25.562 and Arthritis M19.90 [facility] [id number], [place] [address] 2546 Jun, [facility] [address], [place] [address]- 7259 Jun, Arthritis M19.90 [facility] [id number] May, Arthritis M19.90 ; Knee pain, right M25.561 ; Knee pain, left M25.562 and Tobacco abuse Z72.0 [facility] [address] [facility] [id number] [id number] Feb, Dental examination V72.2 IMMUNIZATIONS No Known Immunizations SOCIAL HISTORY Never Assessed REASON FOR VISIT Refill request PLAN OF CARE VITAL SIGNS MEDICATIONS Unknown Medications RESULTS No Results PROCEDURES No Known procedures INSTRUCTIONS MEDICATIONS ADMINISTERED No Known Medications MEDICAL (GENERAL) HISTORY Type Description Date Medical History chronic pain-bilat knees Surgical History Appendectomy Surgical History Spinal patch Surgical History arthroscopy left knee 12/2015 Surgical History left knee replacement 11/2016 Hospitalization History surgery
--- OUTSIDE RECORDS SUMMARY | 2018-01-15 18:35 | XMS REPORT ---
Author Author ELIZABETH MCGEE Organization [facility] Address [address] [place] [address] Care Team Providers Care Hardness Inspector Name Role Phone ELIZABETH MCGEE Unavailable PROBLEMS Type Condition ICD9-CM Code GON00-DQ Code Onset Dates Condition Status SNOMED Code Problem Tobacco abuse Z72.0 Active 10547272 Problem Osteoarthritis M19.90 Active 864290106 Problem Back pain M54.9 Active 115694033 Problem Arthritis M19.90 Active 0661532 Problem Knee pain, left M25.562 Active 43546099 Problem Knee pain, right M25.561 Active 50497286 Problem Anxiety F41.9 Active 35965351 Problem Other chronic pain G89.29 Active 52733638 Problem Arthralgia M25.50 Active 46075934 Problem Hypertension I10 Active 76499441 Problem Essential hypertension I10 Active 52015386 Problem Hyperlipidemia, unspecified hyperlipidemia type E78.5 Active 00926649 ALLERGIES No Known Allergies ENCOUNTERS Encounter Location Date Diagnosis [place] [id number] [place] [address] 68455- 8257 Oct, [place] [id number] [place] [address] 74488- 2038 Oct, Other chronic pain G89.29 [place] [id number] [place] [address] 67536- 8098 Aug, Other chronic pain G89.29 ; Pain in left knee M25.562 ; Pain in right knee M25.561 and Anxiety F41.9 [place] [id number] [place] [address] 12217- 8306 Jul, Acute pain of right shoulder M25.511 [place] [id number] [place] [address] 53180- 2396 Jul, Other chronic pain G89.29 [facility] [id number], [place] [address] 2546 Jul, [facility] [id number] [place] [address] 28418 2546 Jul, Other chronic pain G89.29 and Acute pain of right shoulder M25.511 [facility] [id number] [place] [address] 65808 2546 Jun, Acute pain of right shoulder M25.511 ; Other chronic pain G89.29 ; Pain in left knee M25.562 and Pain in right knee M25.561 [facility] [id number] [place] [address] 68425- 1166 May, Pain in right knee M25.561 [facility] [id number] [place] [address] 61781 2546 May, Pain in right knee M25.561 [facility] [id number] [place] [address] 01835 2546 Apr, [facility] [id number] [place] [address] 17630- 1356 Apr, Pain in right knee M25.561 [facility] [id number] [place] [address] 35489 2546 Apr, [facility] [address] [place] [address] 02169 2546 Mar, Pain in right knee M25.561 and Other chronic pain G89.29 [facility] [address], [place] [address] November, [facility] [id number] [place] [address] 12230 2546 November, [facility] [id number], [place] [address] 6706 November, Pain in right knee M25.561 [facility] [id number] [address] 1762 Oct, [facility] [address] [address] 2573 Oct, Pain in right knee M25.561 [facility] [address], [place] [address] 3576 Sep, Pain in right knee M25.561 [facility] [id number] [place] [address] 11352- 5284 Sep, [facility] [address] [place] [address] 69126- 8395 Aug, Knee pain, right M25.561 [facility] [address], [place] [address] 8946 Aug, Pain in right knee M25.561 [facility] [id number] [place] [address] 85442- 3849 Aug, [facility] [address], [place] [address]- 2898 Aug, [facility] [id number] [place] [address] 85776- 9965 Jul, Pain in right knee M25.561 [facility] [address], [place] [address] 2555 Jul, Right wrist pain M25.531 ; Pain in right knee M25.561 and Other chronic pain G89.29 [facility] [id number] [address] 6214 Jul, Pain in left wrist M25.532 ; Osteoarthritis M19.90 ; Arthralgia M25.50 ; Hypertension I10 and Pain in right wrist M25.531 [facility] [id number] [address] 8832 Jul, Osteoarthritis M19.90 ; Arthralgia M25.50 ; Hypertension I10 ; Pain in right wrist M25.531 and Pain in left wrist M25.532 [place] [id number] [place] [address] 80382- 8079 Apr, [place] [id number] [place] [address] 98159- 7953 Apr, Preop general physical exam Z01.818 ; Hyperlipidemia, unspecified hyperlipidemia type E78.5 ; Tobacco abuse Z72.0 and Essential hypertension I10 [place] [id number] [place] [address] 33845- 8426 Feb, [place] [address] 6[address]- 8315 30 Dec, 2015 [place] [address] 28572- 7303 16 Dec, 2015 Chondromalacia patellae, right knee M22.41 [place] [address] 13800- 7205 15 Dec, 2015 Chondromalacia patellae, right knee M22.41 [facility] [id number] [place] [address] 30897- 2901 November, Knee pain, left M25.562 and Hypertension I10 [place] [id number] [place] [address] 64508- 1912 14 Oct, 2015 Chondromalacia patellae, right knee M22.41 and Chondromalacia patellae of left knee M22.42 [place] [id number] [place] [address] 20487- 6653 11 Oct, 2015 Arthralgia M25.50 and Hypertension I10 [place] [address] 73417- 0574 29 Sep, 2015 Osteoarthritis M19.90 [place] [id number] [place] [address] 64398- 2131 10 Jun, 2015 Osteoarthritis of knees, bilateral M17.0 [place] [address] [place] [address]- 2546 08 Jun, 2015 Back pain M54.9 ; Tobacco abuse Z72.0 ; Knee pain, right M25.561 ; Knee pain, left M25.562 and Arthritis M19.90 [facility] [id number], [place] [address] 2546 Jun, [facility] [id number] [address]- 8592 Jun, Arthritis M19.90 [facility] [id number], [place] [address]- 8751 May, Arthritis M19.90 ; Knee pain, right M25.561 ; Knee pain, left M25.562 and Tobacco abuse Z72.0 [facility] [id number] [address] Feb, Dental examination V72.2 IMMUNIZATIONS No Known Immunizations SOCIAL HISTORY Never Assessed REASON FOR VISIT knee/shoulder pain -----DBennettRN PLAN OF CARE VITAL SIGNS Height 67.8 in 2017-06-20 Weight 189 lbs 2017-06-20 Temperature 97.6 degrees Fahrenheit 2017-06-20 Heart Rate 90 bpm 2017-06-20 Respiratory Rate 20 2017-06-20 BMI 28.90 kg/m2 2017-06-20 Blood pressure systolic 158 mmHg 2017-06-20 Blood pressure diastolic 100 mmHg 2017-06-20 MEDICATIONS Medication Instructions Dosage Frequency Start Date End Date Duration Status Hydrocodone-Acetaminophen 10-325 MG Orally every 6 hrs. Prescription must last 28 days. 1 tablet as needed Jun, Jul, 28 days Active RESULTS No Results PROCEDURES No Known procedures INSTRUCTIONS MEDICATIONS ADMINISTERED No Known Medications MEDICAL (GENERAL) HISTORY Type Description Date Medical History chronic pain-bilat knees Surgical History Appendectomy Surgical History Spinal patch Surgical History arthroscopy left knee 12/2015 Surgical History left knee replacement 11/2016 Hospitalization History surgery
--- OUTSIDE RECORDS SUMMARY | 2018-01-15 18:35 | XMS REPORT ---
Author Author STEVAN CHEN [facility] Address [address] [place] [address] Care Team Providers Care Assistant Track Coach Name Role Phone STEVAN CHEN Unavailable PROBLEMS Type Condition ICD9-CM Code GMA30-IN Code Onset Dates Condition Status SNOMED Code Problem Knee pain, left M25.562 Active 63047944 Problem Back pain M54.9 Active 185660817 Problem Knee pain, right M25.561 Active 60185764 Problem Arthritis M19.90 Active 4523648 Problem Tobacco abuse Z72.0 Active 23083072 Problem Other chronic pain G89.29 Active 23366187 Problem Essential hypertension I10 Active 85801937 Problem Arthralgia M25.50 Active 87606428 Problem Osteoarthritis M19.90 Active 229724902 Problem Hyperlipidemia, unspecified hyperlipidemia type E78.5 Active 62995045 Problem Hypertension I10 Active 36111406 ALLERGIES Unknown Allergies SOCIAL HISTORY No smoking Hx information available PLAN OF CARE VITAL SIGNS MEDICATIONS Unknown Medications RESULTS Name Result Date Reference Range [employer] 2016-08-15 PROCEDURES Procedure Date Ordered Related Diagnosis Body Site No Charge Aug 15, 2016 IMMUNIZATIONS No Known Immunizations
--- OUTSIDE RECORDS SUMMARY | 2018-01-15 18:35 | XMS REPORT ---
Author Author ELIZABETH MCGEE Organization [facility] Address [address] [place] [address] Care Team Providers Care Channeler Insole Name Role Phone ELIZABETH MCGEE Unavailable PROBLEMS Type Condition ICD9-CM Code FAY00-EN Code Onset Dates Condition Status SNOMED Code Problem Tobacco abuse Z72.0 Active 94337218 Problem Osteoarthritis M19.90 Active 294974474 Problem Back pain M54.9 Active 107349671 Problem Arthritis M19.90 Active 0366173 Problem Knee pain, left M25.562 Active 09211805 Problem Knee pain, right M25.561 Active 10700434 Problem Anxiety F41.9 Active 72578496 Problem Other chronic pain G89.29 Active 28547970 Problem Arthralgia M25.50 Active 23713698 Problem Hypertension I10 Active 34603752 Problem Essential hypertension I10 Active 95102329 Problem Hyperlipidemia, unspecified hyperlipidemia type E78.5 Active 10463564 ALLERGIES No Information ENCOUNTERS Encounter Location Date Diagnosis [place] [id number] [place] [address] 93129- 2760 Oct, [place] [id number] [place] [address] 05608- 2113 Oct, Other chronic pain G89.29 [place] [id number] [place] [address] 58463- 2090 Aug, Other chronic pain G89.29 ; Pain in left knee M25.562 ; Pain in right knee M25.561 and Anxiety F41.9 [place] [id number] [place] [address] 91293- 5943 Jul, Acute pain of right shoulder M25.511 [place] [id number] [place] [address] 11694- 7858 Jul, Other chronic pain G89.29 [facility] [id number], [place] [address]- 9241 Jul, [facility] [id number] [place] [address] 84200 2546 Jul, Other chronic pain G89.29 and Acute pain of right shoulder M25.511 [facility] [id number] [place] [address] 23090 2546 Jun, Acute pain of right shoulder M25.511 ; Other chronic pain G89.29 ; Pain in left knee M25.562 and Pain in right knee M25.561 [facility] [id number] [place] [address] 86324- 5366 May, Pain in right knee M25.561 [facility] [id number] [place] [address] 24752- 1576 May, Pain in right knee M25.561 [facility] [id number] [place] [address] 50493- 2256 Apr, [facility] [id number] [place] [address] 72398- 3286 Apr, Pain in right knee M25.561 [facility] [id number] [place] [address] 00375- 2546 Apr, [facility] [id number] [place] [address] 01148- 4846 Mar, Pain in right knee M25.561 and Other chronic pain G89.29 [facility] [id number] [address]- 0506 November, [facility] [id number] [place] [address] 30167 2546 November, [facility] [id number] [place] [address] 33786- 7516 November, Pain in right knee M25.561 [facility] [id number] [address]- 5283 Oct, [facility] [address], [place] [address]- 1864 Oct, Pain in right knee M25.561 [facility] [address], [place] [address]- 2896 Sep, Pain in right knee M25.561 [facility] [id number] [place] [address] 83064- 7266 Sep, [facility] [address] [place] [address] 26834- 3169 Aug, Knee pain, right M25.561 [facility] [address], [place] [address]- 8560 Aug, Pain in right knee M25.561 [facility] [id number] [place] [address] 87806- 9058 Aug, [facility] [address], [place] [address]- 1315 Aug, [facility] [id number] [place] [address] 33873- 4295 Jul, Pain in right knee M25.561 [facility] [address], [place] [address]- 3336 Jul, Right wrist pain M25.531 ; Pain in right knee M25.561 and Other chronic pain G89.29 [facility] [id number], [place] [address]- 1767 Jul, Pain in left wrist M25.532 ; Osteoarthritis M19.90 ; Arthralgia M25.50 ; Hypertension I10 and Pain in right wrist M25.531 [facility] [address], [place] [address]- 5734 Jul, Osteoarthritis M19.90 ; Arthralgia M25.50 ; Hypertension I10 ; Pain in right wrist M25.531 and Pain in left wrist M25.532 [place] [id number] [place] [address] 86856- 2193 Apr, [place] [id number] [place] [address] 82516- 7101 Apr, Preop general physical exam Z01.818 ; Hyperlipidemia, unspecified hyperlipidemia type E78.5 ; Tobacco abuse Z72.0 and Essential hypertension I10 [place] [id number] [place] [address] 16079- 9865 Feb, [place] [address] 21607- 3509 30 Dec, 2015 [place] [address] 88436- 3391 16 Dec, 2015 Chondromalacia patellae, right knee M22.41 [place] [address] 99091- 5911 Dec, Chondromalacia patellae, right knee M22.41 [place] [id number] [place] [address] 72808- 9216 November, Knee pain, left M25.562 and Hypertension I10 [place] [id number] [place] [address] 96974- 8376 14 Oct, 2015 Chondromalacia patellae, right knee M22.41 and Chondromalacia patellae of left knee M22.42 [place] [id number] [place] [address] 14864- 4735 11 Oct, 2015 Arthralgia M25.50 and Hypertension I10 [place] [address] 93324- 6946 29 Sep, 2015 Osteoarthritis M19.90 [place] [id number] [place] [address] 47655- 9167 10 Jun, 2015 Osteoarthritis of knees, bilateral M17.0 [place] [address] [place] [address]- 2546 Jun, Back pain M54.9 ; Tobacco abuse Z72.0 ; Knee pain, right M25.561 ; Knee pain, left M25.562 and Arthritis M19.90 [facility] [id number], [place] [address]- 2546 Jun, [facility] [id number], [place] [address] 2546 Jun, Arthritis M19.90 [facility] [id number], [place] [address] 2546 May, Arthritis M19.90 ; Knee pain, right M25.561 ; Knee pain, left M25.562 and Tobacco abuse Z72.0 [facility] [address] [facility] [id number] [id number] Feb, Dental examination V72.2 IMMUNIZATIONS No Known Immunizations SOCIAL HISTORY Never Assessed REASON FOR VISIT Controlled Med Refill/ PLAN OF CARE VITAL SIGNS MEDICATIONS Medication Instructions Dosage Frequency Start Date End Date Duration Status Hydrocodone-Acetaminophen 10-325 MG Orally every 6 hrs. Prescription must last 28 days. 1 tablet as needed Jul, 28 days Active RESULTS No Results PROCEDURES No Known procedures INSTRUCTIONS MEDICATIONS ADMINISTERED No Known Medications MEDICAL (GENERAL) HISTORY Type Description Date Medical History chronic pain-bilat knees Surgical History Appendectomy Surgical History Spinal patch Surgical History arthroscopy left knee 12/2015 Surgical History left knee replacement 11/2016 Hospitalization History surgery
--- OUTSIDE RECORDS SUMMARY | 2018-01-15 18:35 | XMS REPORT ---
Author Author STEVAN CHEN [facility] Address [address] [place] [address] Care Team Providers Care Induction Heating Equipment Setter Name Role Phone STEVAN CHEN Unavailable PROBLEMS Type Condition ICD9-CM Code FTK63-JU Code Onset Dates Condition Status SNOMED Code Problem Knee pain, left M25.562 Active 77188343 Problem Back pain M54.9 Active 771443363 Problem Knee pain, right M25.561 Active 74689876 Problem Arthritis M19.90 Active 1450738 Problem Tobacco abuse Z72.0 Active 54510847 Problem Other chronic pain G89.29 Active 25568967 Problem Essential hypertension I10 Active 61314014 Problem Arthralgia M25.50 Active 05279649 Problem Osteoarthritis M19.90 Active 651482662 Problem Hyperlipidemia, unspecified hyperlipidemia type E78.5 Active 73473589 Problem Hypertension I10 Active 42728293 ALLERGIES Unknown Allergies SOCIAL HISTORY No smoking Hx information available PLAN OF CARE VITAL SIGNS MEDICATIONS Unknown Medications RESULTS No Results PROCEDURES No Known procedures IMMUNIZATIONS No Known Immunizations
--- OUTSIDE RECORDS SUMMARY | 2018-01-15 18:35 | XMS REPORT ---
Author Author ELIZABETH MCGEE [facility] Address [address] [place] [address] Care Team Providers Care Oak Tanner Name Role Phone ELIZABETH MCGEE Unavailable PROBLEMS Type Condition ICD9-CM Code VLO92-FW Code Onset Dates Condition Status SNOMED Code Problem Knee pain, left M25.562 Active 70585440 Problem Back pain M54.9 Active 719274120 Problem Knee pain, right M25.561 Active 55586310 Problem Arthritis M19.90 Active 6081820 Problem Tobacco abuse Z72.0 Active 13336310 Problem Other chronic pain G89.29 Active 29297931 Problem Essential hypertension I10 Active 86102992 Problem Arthralgia M25.50 Active 86319975 Problem Osteoarthritis M19.90 Active 073858897 Problem Hyperlipidemia, unspecified hyperlipidemia type E78.5 Active 34553603 Problem Hypertension I10 Active 92785632 ALLERGIES Substance Reaction Event Type Date Status N.K.D.A. Unknown Non Drug Allergy Jul, Unknown SOCIAL HISTORY No smoking Hx information available PLAN OF CARE VITAL SIGNS Height 67.8 in 2016-07-16 Weight 183.0 lbs 2016-07-16 Temperature 97.8 degrees Fahrenheit 2016-07-16 Heart Rate 80 bpm 2016-07-16 Respiratory Rate 20 2016-07-16 BMI 27.99 kg/m2 2016-07-16 Blood pressure systolic 128 mmHg 2016-07-16 Blood pressure diastolic 84 mmHg 2016-07-16 MEDICATIONS Medication Instructions Dosage Frequency Start Date End Date Duration Status Hydrocodone-Acetaminophen 7.5-325 MG Orally 4 times a day 1 tablet as needed 6h Jul, Active RESULTS No Results PROCEDURES Procedure Date Ordered Related Diagnosis Body Site Office Visit, Est Pt., Level 3 Jul 16, 2016 IMMUNIZATIONS No Known Immunizations
--- OUTSIDE RECORDS SUMMARY | 2018-01-15 18:35 | XMS REPORT ---
Author Author STEVAN CHEN [facility] Address [address] [place] [address] Care Team Providers Care Facilitator Name Role Phone STEVAN CHEN Unavailable PROBLEMS Type Condition ICD9-CM Code IBU14-VT Code Onset Dates Condition Status SNOMED Code Problem Knee pain, left M25.562 Active 29121527 Problem Back pain M54.9 Active 609887240 Problem Knee pain, right M25.561 Active 32209783 Problem Arthritis M19.90 Active 1547611 Problem Tobacco abuse Z72.0 Active 25622177 Problem Other chronic pain G89.29 Active 99646531 Problem Essential hypertension I10 Active 51443385 Problem Arthralgia M25.50 Active 23867303 Problem Osteoarthritis M19.90 Active 933937497 Problem Hyperlipidemia, unspecified hyperlipidemia type E78.5 Active 99801507 Problem Hypertension I10 Active 25485723 ALLERGIES No Information SOCIAL HISTORY Never Assessed PLAN OF CARE VITAL SIGNS MEDICATIONS Unknown Medications RESULTS No Results PROCEDURES No Known procedures IMMUNIZATIONS No Known Immunizations MEDICAL (GENERAL) HISTORY Type Description Date Medical History chronic pain-bilat knees Surgical History Appendectomy Surgical History Spinal patch Surgical History arthroscopy left knee 12/2015 Surgical History left knee replacement 11/2016 Hospitalization History surgery
--- OUTSIDE RECORDS SUMMARY | 2018-01-15 18:35 | XMS REPORT ---
Author Author ELIZABETH MCGEE Organization [facility] Address [address] [place] [address] Care Team Providers Care Ground Services Instructor Name Role Phone ELIZABETH MCGEE Unavailable PROBLEMS Type Condition ICD9-CM Code ZTE23-JE Code Onset Dates Condition Status SNOMED Code Problem Tobacco abuse Z72.0 Active 99062133 Problem Osteoarthritis M19.90 Active 315626350 Problem Back pain M54.9 Active 352656985 Problem Arthritis M19.90 Active 1823518 Problem Knee pain, left M25.562 Active 47097991 Problem Knee pain, right M25.561 Active 63228136 Problem Anxiety F41.9 Active 54442803 Problem Other chronic pain G89.29 Active 19786372 Problem Arthralgia M25.50 Active 32831383 Problem Hypertension I10 Active 82170480 Problem Essential hypertension I10 Active 05648287 Problem Hyperlipidemia, unspecified hyperlipidemia type E78.5 Active 33364497 ALLERGIES No Information ENCOUNTERS Encounter Location Date Diagnosis [place] [id number] [place] [address]59- 1305 Oct, [place] [id number] [place] [address] 26524- 7615 Oct, Other chronic pain G89.29 [place] [id number] [place] [address] 15918- 9062 Aug, Other chronic pain G89.29 ; Pain in left knee M25.562 ; Pain in right knee M25.561 and Anxiety F41.9 [place] [address] [address] Jul, Acute pain of right shoulder M25.511 [place] [id number] [place] [address] 31278- 8010 Jul, Other chronic pain G89.29 [facility] [id number], [place] [address] Jul, [facility] [id number] [place] [address] 35802 2546 Jul, Other chronic pain G89.29 and Acute pain of right shoulder M25.511 [facility] [id number] [place] [address] 76382 2546 Jun, Acute pain of right shoulder M25.511 ; Other chronic pain G89.29 ; Pain in left knee M25.562 and Pain in right knee M25.561 [facility] [id number] [place] [address] 57915- 2616 May, Pain in right knee M25.561 [facility] [id number] [place] [address] 32465- 7826 May, Pain in right knee M25.561 [facility] [id number] [place] [address] 96936- 5006 Apr, [facility] [id number] [place] [address] 38397- 1346 Apr, Pain in right knee M25.561 [facility] [id number] [place] [address] 43908- 2546 Apr, [facility] [id number] [place] [address] 19458- 7166 Mar, Pain in right knee M25.561 and Other chronic pain G89.29 [facility] [id number] [address] November, [facility] [id number] [place] [address] 62028 2546 November, [facility] [id number] [place] [address] 90780- 7386 November, Pain in right knee M25.561 [facility] [id number] [address] 8[address] Oct, [facility] [address], [place] [address] 5[address] Oct, Pain in right knee M25.561 [facility] [address], [place] [address] 9[address] Sep, Pain in right knee M25.561 [facility] [id number] [place] [address] 33058- 2536 Sep, [facility] [id number] [place] [address] 22852- 0413 Aug, Knee pain, right M25.561 [facility] [address], [place] [address] 0440 Aug, Pain in right knee M25.561 [facility] [id number] [place] [address] 25480- 9926 Aug, [facility] [address], [place] [address] 4[address] Aug, [facility] [id number] [place] [address] 39972- 4884 Jul, Pain in right knee M25.561 [facility] [address], [place] [address] 3[address] Jul, Right wrist pain M25.531 ; Pain in right knee M25.561 and Other chronic pain G89.29 [facility] [id number], [place] [address] 1126 Jul, Pain in left wrist M25.532 ; Osteoarthritis M19.90 ; Arthralgia M25.50 ; Hypertension I10 and Pain in right wrist M25.531 [facility] [address], [place] [address] Jul, Osteoarthritis M19.90 ; Arthralgia M25.50 ; Hypertension I10 ; Pain in right wrist M25.531 and Pain in left wrist M25.532 [place] [id number] [place] [address] 50196- 6039 Apr, [place] [id number] [place] [address] 28373- 4264 Apr, Preop general physical exam Z01.818 ; Hyperlipidemia, unspecified hyperlipidemia type E78.5 ; Tobacco abuse Z72.0 and Essential hypertension I10 [place] [id number] [place] [address] 35600- 0794 Feb, [place] [address] 43325- 2546 30 Dec, 2015 [place] [address] 27603- 8402 16 Dec, 2015 Chondromalacia patellae, right knee M22.41 [place] [address] 50259- 0671 Dec, Chondromalacia patellae, right knee M22.41 [place] [id number] [place] [address] 86023- 1326 November, Knee pain, left M25.562 and Hypertension I10 [place] [id number] [place] [address] 06855- 0738 14 Oct, 2015 Chondromalacia patellae, right knee M22.41 and Chondromalacia patellae of left knee M22.42 [place] [id number] [place] [address] 03292- 4574 11 Oct, 2015 Arthralgia M25.50 and Hypertension I10 [place] [address] 22834- 3122 29 Sep, 2015 Osteoarthritis M19.90 [place] [id number] [place] [address] 99326- 4076 10 Jun, 2015 Osteoarthritis of knees, bilateral M17.0 [place] [address] [place] [address]- 2546 Jun, Back pain M54.9 ; Tobacco abuse Z72.0 ; Knee pain, right M25.561 ; Knee pain, left M25.562 and Arthritis M19.90 [facility] [id number], [place] [address]- 2546 Jun, [facility] [id number], [place] [address] 2546 Jun, Arthritis M19.90 [facility] [id number], [place] [address]- [address] May, Arthritis M19.90 ; Knee pain, right M25.561 ; Knee pain, left M25.562 and Tobacco abuse Z72.0 [facility] [address] [facility] [id number] [id number] Feb, Dental examination V72.2 IMMUNIZATIONS No Known Immunizations SOCIAL HISTORY Never Assessed REASON FOR VISIT med refill PLAN OF CARE VITAL SIGNS MEDICATIONS Medication Instructions Dosage Frequency Start Date End Date Duration Status Hydrocodone-Acetaminophen 10-325 MG Orally every 6 hrs. Prescription must last 28 days. 2 tablet as needed May, Jun, 28 days Active RESULTS No Results PROCEDURES No Known procedures INSTRUCTIONS MEDICATIONS ADMINISTERED No Known Medications MEDICAL (GENERAL) HISTORY Type Description Date Medical History chronic pain-bilat knees Surgical History Appendectomy Surgical History Spinal patch Surgical History arthroscopy left knee 12/2015 Surgical History left knee replacement 11/2016 Hospitalization History surgery
--- OUTSIDE RECORDS SUMMARY | 2018-01-15 18:35 | XMS REPORT ---
Author Author STEVAN CHEN [facility] Address [address] [place] [address] Care Team Providers Care Label Coder Name Role Phone STEVAN CHEN Unavailable PROBLEMS Type Condition ICD9-CM Code QDN05-UU Code Onset Dates Condition Status SNOMED Code Problem Knee pain, left M25.562 Active 76794589 Problem Back pain M54.9 Active 597348740 Problem Knee pain, right M25.561 Active 05425445 Problem Arthritis M19.90 Active 5342700 Problem Tobacco abuse Z72.0 Active 70658459 Problem Other chronic pain G89.29 Active 63287545 Problem Essential hypertension I10 Active 06991473 Problem Arthralgia M25.50 Active 79431155 Problem Osteoarthritis M19.90 Active 056140292 Problem Hyperlipidemia, unspecified hyperlipidemia type E78.5 Active 77658055 Problem Hypertension I10 Active 84560215 ALLERGIES Unknown Allergies SOCIAL HISTORY No smoking Hx information available PLAN OF CARE VITAL SIGNS MEDICATIONS Unknown Medications RESULTS No Results PROCEDURES No Known procedures IMMUNIZATIONS No Known Immunizations
--- OUTSIDE RECORDS SUMMARY | 2018-01-15 18:36 | XMS REPORT ---
Author Author STEVAN CHEN [facility] Address [address] [place] [address] Care Team Providers Care Criminal Justice Faculty Name Role Phone STEVAN CHEN Unavailable PROBLEMS Type Condition ICD9-CM Code SLD58-UY Code Onset Dates Condition Status SNOMED Code Problem Knee pain, left M25.562 Active 85171647 Problem Back pain M54.9 Active 166560757 Problem Knee pain, right M25.561 Active 07932056 Problem Arthritis M19.90 Active 0957821 Problem Tobacco abuse Z72.0 Active 39851053 Problem Other chronic pain G89.29 Active 01747207 Problem Essential hypertension I10 Active 68518219 Problem Arthralgia M25.50 Active 12890885 Problem Osteoarthritis M19.90 Active 575372743 Problem Hyperlipidemia, unspecified hyperlipidemia type E78.5 Active 91719409 Problem Hypertension I10 Active 28291022 ALLERGIES Unknown Allergies SOCIAL HISTORY No smoking Hx information available PLAN OF CARE VITAL SIGNS MEDICATIONS Unknown Medications RESULTS No Results PROCEDURES No Known procedures IMMUNIZATIONS No Known Immunizations
--- OUTSIDE RECORDS SUMMARY | 2018-01-15 18:36 | XMS REPORT ---
Author Author ELIZABETH MCGEE Organization [facility] Address [address] [place] [address] Care Team Providers Care Archeologist Classical Name Role Phone ELIZABETH MCGEE Unavailable PROBLEMS Type Condition ICD9-CM Code YOS13-WB Code Onset Dates Condition Status SNOMED Code Problem Tobacco abuse Z72.0 Active 22279004 Problem Osteoarthritis M19.90 Active 925309133 Problem Back pain M54.9 Active 037925743 Problem Arthritis M19.90 Active 3947279 Problem Knee pain, left M25.562 Active 75455296 Problem Knee pain, right M25.561 Active 54304677 Problem Anxiety F41.9 Active 04576686 Problem Other chronic pain G89.29 Active 13175429 Problem Arthralgia M25.50 Active 62523465 Problem Hypertension I10 Active 02815853 Problem Essential hypertension I10 Active 18199808 Problem Hyperlipidemia, unspecified hyperlipidemia type E78.5 Active 29409980 ALLERGIES No Information ENCOUNTERS Encounter Location Date Diagnosis [place] [id number] [place] [address] 67093- 2490 Oct, [place] [id number] [place] [address] 10774- 5359 Oct, Other chronic pain G89.29 [place] [id number] [place] [address] 31391- 1178 Aug, Other chronic pain G89.29 ; Pain in left knee M25.562 ; Pain in right knee M25.561 and Anxiety F41.9 [place] [id number] [place] [address] 57331- 4130 Jul, Acute pain of right shoulder M25.511 [place] [id number] [place] [address] 42386- 3379 Jul, Other chronic pain G89.29 [facility] [id number] [address]- 4232 Jul, [facility] [id number] [place] [address] 57951 2546 Jul, Other chronic pain G89.29 and Acute pain of right shoulder M25.511 [facility] [id number] [place] [address] 32317 2546 Jun, Acute pain of right shoulder M25.511 ; Other chronic pain G89.29 ; Pain in left knee M25.562 and Pain in right knee M25.561 [facility] [id number] [place] [address] 05918- 3286 May, Pain in right knee M25.561 [facility] [id number] [place] [address] 50746- 4186 May, Pain in right knee M25.561 [facility] [id number] [place] [address] 15558- 3336 Apr, [facility] [id number] [place] [address] 88920- 1366 Apr, Pain in right knee M25.561 [facility] [id number] [place] [address] 79771- 2546 Apr, [facility] [id number] [place] [address] 94983- 7716 Mar, Pain in right knee M25.561 and Other chronic pain G89.29 [facility] [id number] [address]- 6276 November, [facility] [id number] [place] [address] 77542 2546 November, [facility] [id number] [place] [address] 77809- 3696 November, Pain in right knee M25.561 [facility] [id number] [address]- 2948 Oct, [facility] [address] [address]- 0460 Oct, Pain in right knee M25.561 [facility] [address] [address]- 4996 Sep, Pain in right knee M25.561 [facility] [id number] [place] [address] 07321- 8296 Sep, [facility] [address] [place] [address] 05377- 2018 Aug, Knee pain, right M25.561 [facility] [address] [address]- 8217 Aug, Pain in right knee M25.561 [facility] [id number] [place] [address] 70563- 9222 Aug, [facility] [address] [address]- 8355 Aug, [facility] [id number] [place] [address] 69267- 5210 Jul, Pain in right knee M25.561 [facility] [address] [address]- 3628 Jul, Right wrist pain M25.531 ; Pain in right knee M25.561 and Other chronic pain G89.29 [facility] [id number] [address]- 5874 Jul, Pain in left wrist M25.532 ; Osteoarthritis M19.90 ; Arthralgia M25.50 ; Hypertension I10 and Pain in right wrist M25.531 [facility] [address] [address]- 1746 Jul, Osteoarthritis M19.90 ; Arthralgia M25.50 ; Hypertension I10 ; Pain in right wrist M25.531 and Pain in left wrist M25.532 [place] [id number] [place] [address] 87504- 9006 Apr, [place] [id number] [place] [address] 64253- 6526 Apr, Preop general physical exam Z01.818 ; Hyperlipidemia, unspecified hyperlipidemia type E78.5 ; Tobacco abuse Z72.0 and Essential hypertension I10 [place] [id number] [place] [address] 07736- 2853 Feb, [place] [address] [address]137- 2414 30 Dec, 2015 [place] [address] 74949- 4159 16 Dec, 2015 Chondromalacia patellae, right knee M22.41 [place] [address] 37021- 0375 Dec, Chondromalacia patellae, right knee M22.41 [place] [id number] [place] [address] 99712- 7436 November, Knee pain, left M25.562 and Hypertension I10 [place] [id number] [place] [address] 22534- 2600 14 Oct, 2015 Chondromalacia patellae, right knee M22.41 and Chondromalacia patellae of left knee M22.42 [place] [id number] [place] [address] 75547- 3380 11 Oct, 2015 Arthralgia M25.50 and Hypertension I10 [place] [address] 97731- 7898 29 Sep, 2015 Osteoarthritis M19.90 [place] [id number] [place] [address] 21495- 8803 10 Jun, 2015 Osteoarthritis of knees, bilateral M17.0 [place] [address] [place] [address]- 2546 08 Jun, 2015 Back pain M54.9 ; Tobacco abuse Z72.0 ; Knee pain, right M25.561 ; Knee pain, left M25.562 and Arthritis M19.90 [facility] [id number] [address] 2546 Jun, [facility] [address] [address]- 3632 Jun, Arthritis M19.90 [facility] [id number] [address]- 5377 May, Arthritis M19.90 ; Knee pain, right M25.561 ; Knee pain, left M25.562 and Tobacco abuse Z72.0 [facility] [address] [facility] [id number] [id number] Feb, Dental examination V72.2 IMMUNIZATIONS No Known Immunizations SOCIAL HISTORY Never Assessed REASON FOR VISIT Ameritox CBrumbackRN PLAN OF CARE VITAL SIGNS MEDICATIONS Unknown Medications RESULTS Name Result Date Reference Range [employer] 2017-07-18 PROCEDURES Procedure Date Ordered Result Body Site No Charge Jul 18, 2017 INSTRUCTIONS MEDICATIONS ADMINISTERED No Known Medications MEDICAL (GENERAL) HISTORY Type Description Date Medical History chronic pain-bilat knees Surgical History Appendectomy Surgical History Spinal patch Surgical History arthroscopy left knee 12/2015 Surgical History left knee replacement 11/2016 Hospitalization History surgery
--- OUTSIDE RECORDS SUMMARY | 2018-01-15 18:36 | XMS REPORT ---
Author Author STEVAN CHEN [facility] Address [address] [place] [address] Care Team Providers Care Plans Examiner Name Role Phone STEVAN CHEN Unavailable PROBLEMS Type Condition ICD9-CM Code TOI95-DT Code Onset Dates Condition Status SNOMED Code Problem Knee pain, left M25.562 Active 61395397 Problem Back pain M54.9 Active 317444331 Problem Knee pain, right M25.561 Active 13890920 Problem Arthritis M19.90 Active 3489506 Problem Tobacco abuse Z72.0 Active 66877616 Problem Other chronic pain G89.29 Active 76682936 Problem Essential hypertension I10 Active 78797214 Problem Arthralgia M25.50 Active 57547822 Problem Osteoarthritis M19.90 Active 543764467 Problem Hyperlipidemia, unspecified hyperlipidemia type E78.5 Active 07603138 Problem Hypertension I10 Active 93352835 ALLERGIES Substance Reaction Event Type Date Status N.K.D.A. Unknown Non Drug Allergy Jul, Unknown SOCIAL HISTORY No smoking Hx information available PLAN OF CARE Activity Details Follow Up prn Reason: VITAL SIGNS Height 67.8 in 2016-08-01 Weight 189 lbs 2016-08-01 Temperature 98.4 degrees Fahrenheit 2016-08-01 Heart Rate 88 bpm 2016-08-01 Respiratory Rate 20 2016-08-01 BMI 28.90 kg/m2 2016-08-01 Blood pressure systolic 150 mmHg 2016-08-01 Blood pressure diastolic 92 mmHg 2016-08-01 MEDICATIONS Medication Instructions Dosage Frequency Start Date End Date Duration Status Hydrocodone-Acetaminophen 7.5-325 MG Orally 4 times a day 1 tablet 6h Jul, Aug, 28 days Active RESULTS No Results PROCEDURES Procedure Date Ordered Related Diagnosis Body Site Office Visit, Est Pt., Level 3 Aug 01, 2016 IMMUNIZATIONS No Known Immunizations
--- OUTSIDE RECORDS SUMMARY | 2018-01-15 18:36 | XMS REPORT ---
Author Author ELIZABETH MCGEE Organization [facility] Address [address] [place] [address] Care Team Providers Care Senior Software Development Manager Name Role Phone ELIZABETH MCGEE Unavailable PROBLEMS Type Condition ICD9-CM Code [id number] Code Onset Dates Condition Status SNOMED Code Problem Tobacco abuse Z72.0 Active 40776012 Problem Osteoarthritis M19.90 Active 653388821 Problem Back pain M54.9 Active 788220659 Problem Arthritis M19.90 Active 3620343 Problem Knee pain, left M25.562 Active 12749685 Problem Knee pain, right M25.561 Active 10099375 Problem Anxiety F41.9 Active 18436166 Problem Other chronic pain G89.29 Active 19270739 Problem Arthralgia M25.50 Active 96062635 Problem Hypertension I10 Active 19023705 Problem Essential hypertension I10 Active 06001598 Problem Hyperlipidemia, unspecified hyperlipidemia type E78.5 Active 35048324 ALLERGIES No Information ENCOUNTERS Encounter Location Date Diagnosis [place] [id number] [place] [address] 38346- 0580 Oct, [place] [id number] [place] [address] 47650- 0129 Oct, Other chronic pain G89.29 [place] [id number] [place] [address] 55473- 7795 Aug, Other chronic pain G89.29 ; Pain in left knee M25.562 ; Pain in right knee M25.561 and Anxiety F41.9 [place] [id number] [place] [address] 51109- 0503 Jul, Acute pain of right shoulder M25.511 [place] [id number] [place] [address] 96619- 3124 Jul, Other chronic pain G89.29 [facility] [id number] [address] Jul, [facility] [id number] [place] [address] 57455 2546 Jul, Other chronic pain G89.29 and Acute pain of right shoulder M25.511 [facility] [id number] [place] [address] 46465 2546 Jun, Acute pain of right shoulder M25.511 ; Other chronic pain G89.29 ; Pain in left knee M25.562 and Pain in right knee M25.561 [facility] [id number] [place] [address] 60222- 1976 May, Pain in right knee M25.561 [facility] [id number] [place] [address] 00293- 4816 May, Pain in right knee M25.561 [facility] [id number] [place] [address] 79659- 2606 Apr, [facility] [id number] [place] [address] 28544- 7826 Apr, Pain in right knee M25.561 [facility] [id number] [place] [address] 37059- 2546 Apr, [facility] [id number] [place] [address] 00789- 3106 Mar, Pain in right knee M25.561 and Other chronic pain G89.29 [facility] [id number] [address] 0756 November, [facility] [id number] [place] [address] 80048 2546 November, [facility] [id number] [place] [address] 76581- 6646 November, Pain in right knee M25.561 [facility] [id number] [address] 5783 Oct, [facility] [address] [address] 7926 Oct, Pain in right knee M25.561 [facility] [address], [place] [address] 3846 Sep, Pain in right knee M25.561 [facility] [id number] [place] [address] 07712- 1346 Sep, [facility] [id number] [place] [address] 22738- 8790 Aug, Knee pain, right M25.561 [facility] [address], [place] [address]- 7129 Aug, Pain in right knee M25.561 [facility] [id number] [place] [address] 09109- 6488 Aug, [facility] [address], [place] [address] 5464 Aug, [facility] [id number] [place] [address] 77844- 9767 Jul, Pain in right knee M25.561 [facility] [address], [place] [address] 8137 Jul, Right wrist pain M25.531 ; Pain in right knee M25.561 and Other chronic pain G89.29 [facility] [id number] [address] 8675 Jul, Pain in left wrist M25.532 ; Osteoarthritis M19.90 ; Arthralgia M25.50 ; Hypertension I10 and Pain in right wrist M25.531 [facility] [address], [place] [address]- 1690 Jul, Osteoarthritis M19.90 ; Arthralgia M25.50 ; Hypertension I10 ; Pain in right wrist M25.531 and Pain in left wrist M25.532 [place] [id number] [place] [address] 88520- 3722 Apr, [place] [id number] [place] [address] 44232- 1829 Apr, Preop general physical exam Z01.818 ; Hyperlipidemia, unspecified hyperlipidemia type E78.5 ; Tobacco abuse Z72.0 and Essential hypertension I10 [place] [id number] [place] [address] 95011- 0978 Feb, [place] [address] 74034- 3263 30 Dec, 2015 [place] [address] 36410- 4309 16 Dec, 2015 Chondromalacia patellae, right knee M22.41 [place] [address] 99468- 2061 Dec, Chondromalacia patellae, right knee M22.41 [place] [id number] [place] [address] 22538- 7365 November, Knee pain, left M25.562 and Hypertension I10 [place] [id number] [place] [address] 95148- 4830 14 Oct, 2015 Chondromalacia patellae, right knee M22.41 and Chondromalacia patellae of left knee M22.42 [place] [id number] [place] [address] 08678- 7925 11 Oct, 2015 Arthralgia M25.50 and Hypertension I10 [place] [address] 50796- 5111 29 Sep, 2015 Osteoarthritis M19.90 [place] [id number] [place] [address] 67946- 2372 10 Jun, 2015 Osteoarthritis of knees, bilateral M17.0 [place] [address] [place] [address]- 2546 Jun, Back pain M54.9 ; Tobacco abuse Z72.0 ; Knee pain, right M25.561 ; Knee pain, left M25.562 and Arthritis M19.90 [facility] [id number], [place] [address] 2546 Jun, [facility] [address], [place] [address]- 6687 Jun, Arthritis M19.90 [facility] [id number] [address]64 May, Arthritis M19.90 ; Knee pain, right M25.561 ; Knee pain, left M25.562 and Tobacco abuse Z72.0 [facility] [address] [facility] [id number] [id number] Feb, Dental examination V72.2 IMMUNIZATIONS No Known Immunizations SOCIAL HISTORY Never Assessed REASON FOR VISIT PLAN OF CARE VITAL SIGNS MEDICATIONS Unknown Medications RESULTS No Results PROCEDURES No Known procedures INSTRUCTIONS MEDICATIONS ADMINISTERED No Known Medications MEDICAL (GENERAL) HISTORY Type Description Date Medical History chronic pain-bilat knees Surgical History Appendectomy Surgical History Spinal patch Surgical History arthroscopy left knee 12/2015 Surgical History left knee replacement 11/2016 Hospitalization History surgery
--- OUTSIDE RECORDS SUMMARY | 2018-01-15 18:36 | XMS REPORT ---
Author Author ELIZABETH MCGEE Organization [facility] Address [address] [place] [address] Care Team Providers Care Industrial Cleaning Technician Name Role Phone ELIZABETH MCGEE Unavailable PROBLEMS Type Condition ICD9-CM Code [id number] Code Onset Dates Condition Status SNOMED Code Problem Tobacco abuse Z72.0 Active 41750251 Problem Osteoarthritis M19.90 Active 393827627 Problem Back pain M54.9 Active 598624119 Problem Arthritis M19.90 Active 4674889 Problem Knee pain, left M25.562 Active 89856399 Problem Knee pain, right M25.561 Active 44218863 Problem Anxiety F41.9 Active 62988431 Problem Other chronic pain G89.29 Active 42011137 Problem Arthralgia M25.50 Active 38764195 Problem Hypertension I10 Active 33424037 Problem Essential hypertension I10 Active 01816602 Problem Hyperlipidemia, unspecified hyperlipidemia type E78.5 Active 35825918 ALLERGIES No Information ENCOUNTERS Encounter Location Date Diagnosis [place] [id number] [place] [address] 73474- 0534 Oct, [place] [id number] [place] [address] 42952- 9784 Oct, Other chronic pain G89.29 [place] [id number] [place] [address] 11787- 5424 Aug, Other chronic pain G89.29 ; Pain in left knee M25.562 ; Pain in right knee M25.561 and Anxiety F41.9 [place] [id number] [place] [address] 86929- 8355 Jul, Acute pain of right shoulder M25.511 [place] [id number] [place] [address] 12623- 9373 Jul, Other chronic pain G89.29 [facility] [id number], [place] [address]- 0621 Jul, [facility] [id number] [place] [address] 59942 2546 Jul, Other chronic pain G89.29 and Acute pain of right shoulder M25.511 [facility] [id number] [place] [address] 74125 2546 Jun, Acute pain of right shoulder M25.511 ; Other chronic pain G89.29 ; Pain in left knee M25.562 and Pain in right knee M25.561 [facility] [id number] [place] [address] 28746- 5776 May, Pain in right knee M25.561 [facility] [id number] [place] [address] 18385- 2696 May, Pain in right knee M25.561 [facility] [id number] [place] [address] 16770- 5696 Apr, [facility] [id number] [place] [address] 21819- 4826 Apr, Pain in right knee M25.561 [facility] [id number] [place] [address] 39699- 2546 Apr, [facility] [id number] [place] [address] 65530- 7866 Mar, Pain in right knee M25.561 and Other chronic pain G89.29 [facility] [id number] [address]- 9146 November, [facility] [id number] [place] [address] 08709 2546 November, [facility] [id number] [place] [address] 09883- 1596 November, Pain in right knee M25.561 [facility] [id number] [address]- 8498 Oct, [facility] [address], [place] [address]- 4425 Oct, Pain in right knee M25.561 [facility] [address], [place] [address]- 6236 Sep, Pain in right knee M25.561 [facility] [id number] [place] [address] 94871- 8966 Sep, [facility] [address] [place] [address] 47542- 8755 Aug, Knee pain, right M25.561 [facility] [address], [place] [address]- 4872 Aug, Pain in right knee M25.561 [facility] [id number] [place] [address] 19252- 3961 Aug, [facility] [address], [place] [address]- 8673 Aug, [facility] [id number] [place] [address] 23742- 3902 Jul, Pain in right knee M25.561 [facility] [address], [place] [address]- 8202 Jul, Right wrist pain M25.531 ; Pain in right knee M25.561 and Other chronic pain G89.29 [facility] [id number], [place] [address]- 2288 Jul, Pain in left wrist M25.532 ; Osteoarthritis M19.90 ; Arthralgia M25.50 ; Hypertension I10 and Pain in right wrist M25.531 [facility] [address], [place] [address]- 9422 Jul, Osteoarthritis M19.90 ; Arthralgia M25.50 ; Hypertension I10 ; Pain in right wrist M25.531 and Pain in left wrist M25.532 [place] [id number] [place] [address] 66662- 1923 Apr, [place] [id number] [place] [address] 73629- 5402 Apr, Preop general physical exam Z01.818 ; Hyperlipidemia, unspecified hyperlipidemia type E78.5 ; Tobacco abuse Z72.0 and Essential hypertension I10 [place] [id number] [place] [address] 69099- 2426 Feb, [place] [address] 97941- 8930 30 Dec, 2015 [place] [address] 09391- 2432 16 Dec, 2015 Chondromalacia patellae, right knee M22.41 [place] [address] 49472- 3682 Dec, Chondromalacia patellae, right knee M22.41 [place] [id number] [place] [address] 44452- 6632 November, Knee pain, left M25.562 and Hypertension I10 [place] [id number] [place] [address] 78978- 7625 14 Oct, 2015 Chondromalacia patellae, right knee M22.41 and Chondromalacia patellae of left knee M22.42 [place] [id number] [place] [address] 35171- 7288 11 Oct, 2015 Arthralgia M25.50 and Hypertension I10 [place] [address] 97990- 2680 29 Sep, 2015 Osteoarthritis M19.90 [place] [id number] [place] [address] 74281- 2648 10 Jun, 2015 Osteoarthritis of knees, bilateral M17.0 [place] [address] [place] [address]- 2546 Jun, Back pain M54.9 ; Tobacco abuse Z72.0 ; Knee pain, right M25.561 ; Knee pain, left M25.562 and Arthritis M19.90 [facility] [id number], [place] [address] 2546 Jun, [facility] [address], [place] [address]- 8407 Jun, Arthritis M19.90 [facility] [id number] 9083 May, Arthritis M19.90 ; Knee pain, right M25.561 ; Knee pain, left M25.562 and Tobacco abuse Z72.0 [facility] [address] [facility] [id number] [id number] Feb, Dental examination V72.2 IMMUNIZATIONS No Known [...]
--- OUTSIDE RECORDS SUMMARY | 2018-01-15 18:38 | XMS REPORT | Continuity of Care Document ---
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 Registration
[2018-01-15] MEDS ORDERED: ONDANSETRON 4 MG (ZOFRAN) ORAL DISSOLVE TAB PO ONE (20:15)
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
[2018-01-15] MEDS ORDERED: MECL-106 PO (20:51)
[2018-01-15 20:58] VITALS: BP 149/93
== END 2018-01-15 20:58 | disposition home or self-care (01) ==
LOC: EDUNIT# 18:26 → ER 18:29
DX: R42 Dizziness and giddiness (principal); I10 Essential (primary) hypertension; H61.23 Impacted cerumen, bilateral; F17.210 Nicotine dependence, cigarettes, uncomplicated; M17.12 Unilateral primary osteoarthritis, left knee; F41.9 Anxiety disorder, unspecified; Z96.652 Presence of left artificial knee joint
CPT/HCPCS: 99283

== ENCOUNTER 2018-01-17 06:55 | Day surgery (SDC) | payer BC ==
[~2018-01-17] VITALS: Ht 175.3 cm; Wt 83.9 kg
[~2018-01-17 06:55] MED LIST changes: +MECL-106 PO
[2018-01-17] MEDS ORDERED: LACTATED RINGERS 1,000 ML IV PRN (07:14)
[2018-01-17 07:15] VITALS: BP 145/99
[2018-01-17] MEDS ORDERED: PHENYLEPHRINE 0.25% NASAL SPR (NEO-SYNEPHRINE) 15 ML NS ONE (07:15)
[2018-01-17] MEDS ORDERED: LIDOCAINE/EPI 1%-1:200,000 (XYLOCAINE) 10 ML VIAL ONE (07:49)
[2018-01-17] MEDS ORDERED: PHENYLEPHRINE 0.5% NASAL SPR (NEO-SYNEPHRINE) REG ONE (07:49)
[2018-01-17] MEDS ORDERED: COCAINE HCL 4% 2 ML SYR ONE (07:49)
[2018-01-17] MEDS ORDERED: BSS 15 ML ONE (07:50)
[2018-01-17] MEDS ORDERED: MUPIROCIN 2% OINT 22 GM (BACTROBAN) TUBE ONE (07:50)
[2018-01-17] MEDS ORDERED: LIDOCAINE PF 2% 5 ML (XYLOCAINE) VIAL ONE (07:57)
[2018-01-17] MEDS ORDERED: SEVOFLURANE (ULTANE) 15 ML INHAL SOLN ONE (07:57)
[2018-01-17] MEDS ORDERED: proPOfol 200 MG/20 ML (DIPRIVAN) VIAL IV ONE (07:57)
[2018-01-17] MEDS ORDERED: MIDAZOLAM 2 MG/2 ML (VERSED) VIAL ONE (07:58)
[2018-01-17] MEDS ORDERED: fentaNYL INJECTION 100 MCG/2 ML AMP ONE (07:58)
--- NOTE | 2018-01-17 08:13 | Progress Note-Pre Operative ---
Pre-Operative Progress Note H&P Reviewed The H&P was reviewed, patient examined and no changes noted. Date Seen by Provider: Jan 17, 2018 Time Seen by Provider: 07:50 Date H&P Reviewed: Jan 17, 2018 Time H&P Reviewed: 07:50 Pre-Operative Diagnosis: Displced Nasal Fracture DEREK GROSSMAN MD Jan 17, 2018 8:13 am
[2018-01-17] MEDS ORDERED: NS IV 1000 ML 1,000 ML IV SCH (08:42)
--- NOTE | 2018-01-17 08:42 | Progress Note-Post Operative ---
Post-Operative Progess Note Surgeon (s)/Intermission Coordinator (s) Surgeon DEREK GROSSMAN MD Intermission Coordinator n/a Pre-Operative Diagnosis Displced Nasal Fracture Post-Operative Diagnosis same Post-Op Procedure Note Date of Procedure: Jan 17, 2018 Name of Procedure Performed: Clsoed REduction of Nasal Fracture Description & Findings Description and Findings: n/a Anesthesia Type get Estimated Blood Loss minimal Packing none. Specimen(s) collected/removed none DEREK GROSSMAN MD Jan 17, 2018 8:42 am
[2018-01-17] MEDS ORDERED: HYDROcodone/APAP 5 MG/325 MG (LORTAB) TAB PO PRN (08:45)
[2018-01-17] MEDS ORDERED: APAP 325 MG/10.15 ML LIQ (TYLENOL) UDC PO PRN (08:45)
[2018-01-17] MEDS ORDERED: morphine INJ 10 MG/ML 1ML (SYR OR VIAL) ONE (08:54)
[2018-01-17] MEDS: morphine INJ 10 MG/ML 1ML (SYR OR VIAL) IVP PRN ×2 (08:55→09:00)
[2018-01-17] MEDS ORDERED: ONDANSETRON 4 MG/2 ML (SDV) Z0FRAN IVP PRN (09:00)
--- NOTE | 2018-01-17 09:26 | Anesthesia-General Post-Op ---
General Patient Condition Mental Status/LOC: Same as Preop Cardiovascular: Satisfactory Nausea/Vomiting: Absent Respiratory: Satisfactory Pain: Controlled Complications: Absent Post Op Complications Complications None Follow Up Care/Instructions Patient Instructions None needed. Anesthesia/Patient Condition Patient Condition Patient is doing well, no complaints, stable vital signs, no apparent adverse anesthesia problems. No complications reported per nursing. RIGO COHEN CRNA Jan 17, 2018 09:26
[2018-01-17 09:40] VITALS: BP 144/93
[2018-01-17] MEDS ORDERED: HYDR-3812 PO (10:00)
[2018-01-17 10:10] VITALS: BP 141/102
[2018-01-17 10:40] VITALS: BP_SYST 122; BP_SYST 127; BP_DIAS 98
== END 2018-01-17 10:45 | disposition home or self-care (01) ==
LOC: SDC 06:55
PROVIDERS: ATTEND Otolaryngology Otolaryngology/Facial Plastic Surgery
DX: S02.2XXA Fracture of nasal bones, initial encounter for closed fracture (principal); J34.2 Deviated nasal septum; F17.210 Nicotine dependence, cigarettes, uncomplicated; Y04.8XXA Assault by other bodily force, initial encounter
CPT/HCPCS: 87081